=== PATIENT | male | born 1955 | race Caucasian/White ===

== ENCOUNTER → 2018-05-20 | Outpatient (CLI) | payer BC ==
[~2018-05-20] MED LIST: ALBU18HF2 INH; BUDE10.2 INH; CYAN10006 PO; CYAN100088 PO; FEXO1TAB40; FEXO1TAB40 PO; FURO40TA4 PO; IPRA3AMP31 NEB; LORA1TAB PO; METH500T5 PO; MIRA50TA PO; OXYC-465 PO; POTA10CA43 PO; TAMS0.4C2 PO; [UNRECOGNIZED DRUG - OTHER] PO
[2018-05-20 16:27] LABS: ABG BASE EXCESS 8.5 MMOL/L (-2.5-2.5); ABG OXYGEN SATURATION 94 % (94-100); ABG PCO2 53 MMHG (35-45); ABG PH 7.41 (7.37-7.43); ABG PO2 65 MMHG (79-93); ABG TCO2 35.1 MMOL/L (21.0-31.0)
[2018-05-20 16:28] LABS: ALLENS TEST POSITIVE; PATIENT TEMP 97.3; VENTILATOR NO
== END ==
LOC: RT 15:38
PROVIDERS: ATTEND Nurse Practitioner Family
DX: J90 Pleural effusion, not elsewhere classified (principal)
CPT/HCPCS: 36600; 82805; 94761

== ENCOUNTER 2018-05-22 13:14 | Observation (INO) | payer BC ==
[~2018-05-22] VITALS: Ht 188 cm; Wt 87.5 kg
--- NOTE | 2018-05-22 14:16 | ED Respiratory ---
General Chief Complaint: Respiratory Problems Stated Complaint: FLUID ON LUNGS Nursing Triage Note: TO TRIAGE IN . STATES HE HAD A CT IN [place] ON SUNDAY WHICH SHOWED FLUID AROUND HIS LUNG. WAS TOLD BY DR STEVEN TO COME HERE. PT COMPLAINS OF INCREASED SOA. RECENTLY STARTED ON LASIX WHICH HAS NOT HELPED. Source: patient, family Exam Limitations: no limitations History of Present Illness Date Seen by Provider: May 22, 2018 Time Seen by Provider: 14:01 Initial Comments Here with report of shortness of breath that is worse with any activity. Does have history of fluid on the long on the left. Also has history of pericarditis and pericardial effusion with pericardial window many years ago. Reports that the breathing is getting worse. He is seen by Dr. Steven earlier and started on Lasix and potassium and a effort to avoid thoracentesis. He is back today with shortness of breath with any activity. Also becoming short of breath with eating and has early satiety related to that. Timing/Duration: week, getting worse Severity: moderate Prior Episodes/Possible Cause: occasional episodes Modifying Factors: Worse With Activity; Improves With Albuterol Nebulizer; Worse With Lying Down; Improves With Oxygen, Improves With Rest Associated Symptoms: No cough, No fever/chills, No nasal congestion, No shortness of breath, No sore throat Allergies and Home Medications Allergies Uncoded Allergies: ROCEPH (Allergy, Severe, 05/22/18) Pt states, "I about ." CYCLOSPORIN (Allergy, Unknown, 05/22/18) Patient Home Medication List Home Medication List Reviewed: Yes Review of Systems Review of Systems Constitutional: see HPI, chills; No fever EENTM: no symptoms reported Respiratory: see HPI, dyspnea on exertion, orthopnea, short of breath, wheezing Cardiovascular: No chest pain; edema Gastrointestinal: No abdominal pain; loss of appetite; No nausea, No vomiting Genitourinary: no symptoms reported Musculoskeletal: no symptoms reported Skin: no symptoms reported Psychiatric/Neurological: No Symptoms Reported All Other Systems Reviewed Negative Unless Noted: Yes Past Aqwmave-Ojfysf-Hjoznz Hx Past Med/Social Hx: Reviewed Nursing Past Med/Soc Hx Patient Social History Alcohol Use: Denies Use Recreational Drug Use: Yes Drug of Choice: marijuana Smoking Status: Former Smoker Type Used: Cigars 2nd Hand Smoke Exposure: No Recent Foreign Travel: No Contact w/Someone Who Travel: No Recent Infectious Disease Expo: No Recent Hopitalizations: No Seasonal Allergies Seasonal Allergies: Yes Past Medical History Surgeries: Yes (mini gastric bypass) Appendectomy, Cardiac Respiratory: Yes Cardiac: No Neurological: No Genitourinary: No Musculoskeletal: No Endocrine: No HEENT: No Cancer: Yes Lymphoma Did You Recieve Any Treatments: Yes What Type of Treatment Did You: Chemotherapy, Radiation Psychosocial: No Blood Disorders: No Adverse Reaction/Blood Tranf: No Family Medical History Reviewed Nursing Family Hx Physical Exam Vital Signs - First Documented 05/22/18 13:18 Temp 97.8 Pulse 81 Resp 16 B/P (MAP) 193/79 (117) Pulse Ox 95 O2 Delivery Room Air Capillary Refill : Less Than 3 Seconds Height: 6'2.00" Weight: 193lbs. oz. 87.952860pb; BMI Method:Stated General Appearance: WD/WN, no apparent distress HEENT: PERRL/EOMI, pharynx normal Neck: full range of motion, supple Respiratory: no accessory muscle use, decreased breath sounds (left side absent ); No wheezing Cardiovascular: regular rate, rhythm, no murmur Gastrointestinal: non tender, soft Extremities: non-tender, normal inspection Neurologic/Psychiatric: alert, oriented x 3 Skin: normal color, warm/dry Progress/Results/Core Measures Suspected Sepsis Recent Fever Within 48 Hours: No Infection Criteria Present: None New/Unexplained Altered Menta: No Sepsis Screen: No Definite Risk SIRS Temperature:97.8 Pulse: 18 Respiratory Rate: 16 Laboratory Tests 05/22/18 14:15: White Blood Count 8.6 Blood Pressure 193 /79 Mean: 117 Laboratory Tests 05/22/18 14:15: Creatinine 0.70, INR Comment 1.0, Platelet Count 314, Total Bilirubin 0.5 Results/Orders Lab Results Laboratory Tests Test 05/22/18 14:15 Range/Units White Blood Count 8.6 4.3-11.0 10^3/uL Red Blood Count 4.72 4.35-5.85 10^6/uL Hemoglobin 15.0 13.3-17.7 G/DL Hematocrit 45 40-54 % Mean Corpuscular Volume 96 80-99 FL Mean Corpuscular Hemoglobin 32 25-34 PG Mean Corpuscular Hemoglobin Concent 33 32-36 G/DL Red Cell Distribution Width 13.2 10.0-14.5 % Platelet Count 314 130-400 10^3/uL Mean Platelet Volume 9.6 7.4-10.4 FL Neutrophils (%) (Auto) 76 H 42-75 % Lymphocytes (%) (Auto) 13 12-44 % Monocytes (%) (Auto) 9 0-12 % Eosinophils (%) (Auto) 1 0-10 % Basophils (%) (Auto) 0 0-10 % Neutrophils # (Auto) 6.6 1.8-7.8 X 10^3 Lymphocytes # (Auto) 1.2 1.0-4.0 X 10^3 Monocytes # (Auto) 0.8 0.0-1.0 X 10^3 Eosinophils # (Auto) 0.1 0.0-0.3 10^3/uL Basophils # (Auto) 0.0 0.0-0.1 10^3/uL Prothrombin Time 13.1 12.2-14.7 SEC INR Comment 1.0 0.8-1.4 Activated Partial Thromboplast Time 37 H 24-35 SEC Sodium Level 138 135-145 MMOL/L Potassium Level 4.4 3.6-5.0 MMOL/L Chloride Level 97 L 98-107 MMOL/L Carbon Dioxide Level 35 H 21-32 MMOL/L Anion Gap 6 5-14 MMOL/L Blood Urea Nitrogen 14 7-18 MG/DL Creatinine 0.70 0.60-1.30 MG/DL Estimat Glomerular Filtration Rate > 60 BUN/Creatinine Ratio 20 Glucose Level 112 H 70-105 MG/DL Calcium Level 11.0 H 8.5-10.1 MG/DL Corrected Calcium 8.5-10.1 MG/DL Total Bilirubin 0.5 0.1-1.0 MG/DL Aspartate Amino Transf (AST/SGOT) 26 5-34 U/L Alanine Aminotransferase (ALT/SGPT) 24 0-55 U/L Alkaline Phosphatase 92 40-136 U/L C-Reactive Protein High Sensitivity 1.28 H 0.00-0.50 MG/DL B-Type Natriuretic Peptide 74.2 <100.0 PG/ML Total Protein 8.4 H 6.4-8.2 GM/DL Albumin 4.6 H 3.2-4.5 GM/DL My Orders Orders - JENNIFER HEIN MD Saline Lock/Iv-Start (05/22/18 14:09) O2 (05/22/18 14:09) Cbc With Automated Diff (05/22/18 14:09) Comprehensive Metabolic Panel (05/22/18 14:09) Hs C Reactive Protein (05/22/18 14:09) Protime With Inr (05/22/18 14:09) Partial Thromboplastin Time (05/22/18 14:09) Chest Pa/Lat (2 View) (05/22/18 14:09) BNP (05/22/18 14:34) Vital Signs/I&O 05/22/18 05/22/18 13:18 13:55 Temp 97.8 Pulse 81 Resp 16 B/P (MAP) 193/79 (117) Pulse Ox 95 95 O2 Delivery Room Air Room Air Capillary Refill : Less Than 3 Seconds Blood Pressure Mean: 117 Progress Note : Progress Note Seen and evaluated. IV, labs and two-view chest x-ray ordered. Patient placed on O2 at 2 L for comfort as he is having difficulty and laying or sitting up in the cart due to shortness of breath. 1550: I did discuss the case with Dr. Desai and Dr. Steven. They accept patient for admission and for consultation respectively. Patient to have thoracentesis in the a.m. Findings concerns discussed with patient and family who agree with plan. Admit, observation status. Diagnostic Imaging Diagonstic Imaging: Xray Plain Films/CT/US/NM/MRI: chest Comments [facility] [place] NAME: ROLAND JACKSON [facility] REC#: [id number] PT STATUS: REG ER : 1955 PHYSICIAN: JENNIFER HEIN MD ADMIT DATE: 05/22/18/ER Draft Date of Exam:05/22/18 CHEST PA/LAT (2 VIEW) PATIENT HISTORY: Shortness of air, fluid about the lung. TECHNIQUE: Two views of the chest. COMPARISON: None. FINDINGS: There is a lrbgsfje-yi-suziy left pleural effusion, with associated airspace opacities. The right lung is clear. The cardiac silhouette is obscured but appears within normal limits of size. Sternotomy wire appears normal. There is aortic atherosclerosis. No acute osseous abnormality seen. There is no pneumothorax. IMPRESSION: Dfcsbele-rj-ubtib left pleural effusion with associated airspace opacities. Dictated on workstation # [id number] Dict: 05/22/18 1431 Trans: 05/22/18 1435 [facility] [id number] Interpreted by: SARAH BRANTLEY MD Electronically signed by: Reviewed: Reviewed by Me Departure Communication (Admissions) Time/Spoke to Admitting Phy: 15:15 Time/Spoke to Consulting Phy: 14:31 Impression Primary Impression: Pleural effusion, left Disposition: ADMITTED INPATIENT Condition: Stable Admissions Decision to Admit Reason: Admit from ER (General) Decision to Admit/Date: May 22, 2018 Time/Decision to Admit Time: 14:31 Departure-Patient Inst. Referrals: NO,LOCAL PHYSICIAN (PCP) Primary Care Physician MARV HERMAN APRN (Family) Primary Care Physician JENNIFER HEIN MD May 22, 2018 14:15
[2018-05-22 14:25] LABS: BASOPHILS % (AUTO) 0 % (0-10); EOSINOPHILS # (AUTO) 0.1 10^3/uL (0.0-0.3); EOSINOPHILS % (AUTO) 1 % (0-10); HEMATOCRIT 45 % (40-54); LYMPHOCYTES # (AUTO) 1.2 X 10^3 (1.0-4.0); LYMPHOCYTES % (AUTO) 13 % (12-44); MEAN CORPUSCULAR HEMOGLOBIN 32 PG (25-34); MEAN CORPUSCULAR HGB CONC 33 G/DL (32-36); MEAN CORPUSCULAR VOLUME 96 FL (80-99); MEAN PLATELET VOLUME 9.6 FL (7.4-10.4); MONOCYTES # (AUTO) 0.8 X 10^3 (0.0-1.0); MONOCYTES % (AUTO) 9 % (0-12); NEUTROPHILS # (AUTO) 6.6 X 10^3 (1.8-7.8); NEUTROPHILS % (AUTO) 76 % (42-75); PLATELET COUNT 314 10^3/uL (130-400); RED BLOOD COUNT 4.72 10^6/uL (4.35-5.85); RED CELL DISTRIBUTION WIDTH 13.2 % (10.0-14.5); WHITE BLOOD COUNT 8.6 10^3/uL (4.3-11.0)
--- OUTSIDE RECORDS SUMMARY | 2018-05-22 14:31 | XMS REPORT | Clinical Summary ---
Author Author Admin, E Organization [facility] Address Unknown Phone Allergies, Adverse Reactions, Alerts Allergy Name Reaction Description Start Date Severity Status Provider ALPA Critical Active Jessi Fields RN Conditions or Problems Problem Name Problem Code Onset Date Status Entry Date Provider Comment Standard Description Annotate SINUSITIS, ACUTE 461.9 Active Anurag HENDRICKS Acute sinusitis, unspecified HYPERTENSION 401.9 Active Jessi Fields RN Unspecified essential hypertension VERRUCA VULGARIS 078.10 Active Anurag HENDRICKS Viral warts, unspecified DIABETES, TYPE 2 250.00 Active Anurag HENDRICKS Diabetes mellitus without mention of complication, type II or unspecified type, not stated as uncontrolled ACUTE BRONCHITIS 466.0 Active Anurag HENDRICKS Acute bronchitis ALLERGIC RHINITIS 477.9 Active Anurag HENDRICKS Allergic rhinitis, cause unspecified SEBACEOUS CYST, NECK 706.2 Active Anurag HENDRICKS Sebaceous cyst CHOLELITHIASIS NOS 574.20 Active Edmar Callahan MD Calculus of gallbladder without mention of cholecystitis, without mention of obstruction SPECIAL SCREENING MALIGNANT NEOPLASM OF PROSTATE V76.44 Active Jessica HENDRICKS Screening for malignant neoplasms of prostate SCREENING FOR ISCHEMIC HEART DISEASE V81.0 Active Jessica HENDRICKS Screening for ischemic heart disease ERECTILE DYSFUNCTION, NON-ORGANIC 302.72 Active Anurag HENDRICKS Psychosexual dysfunction with inhibited sexual excitement Medication List Medication Instructions Start Date Stop Date Generic Name NDC Status Provider Patient Instruction SPIRONOLACTONE 25 MG TAB 1 tablet by mouth daily SPIRONOLACTONE 17754899251 Active Oliva Booth RN Active CIALIS 5 MG TABS Take 1 tablet by mouth daily TADALAFIL 34247072233 Active Anurag HENDRICKS Active METFORMIN HCL 1000 MG TABS 1 tablet by mouth twice daily METFORMIN HCL 94813160622 Active Imtiaz HENDRICKS Active LOVASTATIN 20 MG TABS take one tab po daily LOVASTATIN 50918450843 Active Macario Roy DO Active VESICARE 10 MG TABS take one tab po daily SOLIFENACIN SUCCINATE 12888886288 Active Macario Roy DO Active LEVOFLOXACIN 750 MG TABS Take 1 tablet by mouth daily LEVOFLOXACIN 04022056833 No Longer Active Devi Tomas Active LASIX 40 MG TAB 1/2 to 1 tablet by mouth daily as needed FUROSEMIDE 39184440097 Active Kathi [place] Active LOTREL 5-20 MG CAPS 1 PO BID AMLODIPINE BESY-BENAZEPRIL HCL 00158689836 Active Imtiaz HENDRICKS Active KRNTJLNI-MQOCSAEPO-IG 3.5-36994-7 OTIC SUSP 2 drops qid GBPLEQTN-HLLIGGZCB-ZW 02404215348 No Longer Active Anurag HENDRICKS Active LEVOFLOXACIN 750 MG TABS Take 1 tablet by mouth daily LEVOFLOXACIN 00679697568 No Longer Active Anurag HENDRICKS Active AZITHROMYCIN 250 MG TABS 2 po day 1 and 1 po days 2-5 AZITHROMYCIN 97576236003 No Longer Active Jessi Fields RN Active KARELY-D ALLERGY & CONGESTION 60-120 MG [id number] Take 1 tablet by mouth daily FEXOFENADINE-PSEUDOEPHEDRINE 87424835000 Active Macario Roy DO Active VENTOLIN HFA 108 (90 BASE) MCG/ACT AERS 2 puffs q 4-6 hrs as needed ALBUTEROL SULFATE 18119506894 Active Anurag HENDRICKS Active PREVACID 30 MG CPDR one p.o. daily LANSOPRAZOLE 49225250984 Active Macario Roy DO Active LANSOPRAZOLE 30 MG CPDR Take 1 tablet by mouth daily LANSOPRAZOLE 68288544122 No Longer Active Anurag HENDRICKS Active SMZ-TMP DS 800-160 MG TABS Take one (1) tablet by mouth twice a day SULFAMETHOXAZOLE-TRIMETHOPRIM 14179767378 No Longer Active Anurag HENDRICKS Active FLUTICASONE PROPIONATE 50 MCG/ACT SUSP 2 sprays each nostril qd FLUTICASONE PROPIONATE 60352003613 Active Kathi [place] Active AMOXICILLIN-POT CLAVULANATE 875-125 MG TABS Take one (1) tablet by mouth twice a day AMOXICILLIN-POT CLAVULANATE 19097902682 No Longer Active Jessi Fields RN Active ENDOCET 10-325 MG TABS Take one (1) tablet by mouth three times a day OXYCODONE-ACETAMINOPHEN 51247152156 Active Imtiaz HENDRICKS Active OXYCODONE-ACETAMINOPHEN 10-325 MG TABS Take once every 8 hours by mouth. 2010 OXYCODONE-ACETAMINOPHEN 13704419422 No Longer Active Anurag HENDRICKS Active AMOXICILLIN-POT CLAVULANATE 875-125 MG TABS Take one (1) tablet by mouth twice a day AMOXICILLIN-POT CLAVULANATE 875-125 MG TABS 457967 AMOXICILLIN-POT CLAVULANATE Inactive SMZ-TMP DS 800-160 MG TABS Take one (1) tablet by mouth twice a day SMZ-TMP DS 800-160 MG TABS SULFAMETHOXAZOLE-TRIMETHOPRIM Inactive LANSOPRAZOLE 30 MG CPDR Take 1 tablet by mouth daily LANSOPRAZOLE 30 MG CPDR 968419 LANSOPRAZOLE Inactive AZITHROMYCIN 250 MG TABS 2 po day 1 and 1 po days 2-5 AZITHROMYCIN 250 MG TABS 9998249 AZITHROMYCIN Inactive LEVOFLOXACIN 750 MG TABS Take 1 tablet by mouth daily LEVOFLOXACIN 750 MG TABS 599705 LEVOFLOXACIN Inactive VOCZWEXR-EISJEPMCZ-HG 3.5-82012-6 OTIC SUSP 2 drops qid KRVDPKMB-QIRAXPEZB-PG 3.5-39683-3 OTIC SUSP 626206 ZFRBVMIV-PPRNJOJVF-UD Inactive LEVOFLOXACIN 750 MG TABS Take 1 tablet by mouth daily LEVOFLOXACIN 750 MG TABS 644245 LEVOFLOXACIN Inactive OXYCODONE-ACETAMINOPHEN 10-325 MG TABS Take once every 8 hours by mouth. 2010 OXYCODONE-ACETAMINOPHEN 10-325 MG TABS 0856663 OXYCODONE- ACETAMINOPHEN Inactive Vital Signs Date Name Value Unit Range Description blood pressure, diastolic 96 mm[Hg] BP quigley blood pressure, systolic 175 mm[Hg] BP sys height E&M 73 [in_us] Bdy height pulse rate E&M 116 /min Heart rate temperature E&M 96.9 [degF] Body temperature weight E&M 392 [lb_av] Weight Measured blood pressure, diastolic 90 mm[Hg] BP quigley blood pressure, systolic 150 mm[Hg] BP sys blood pressure, diastolic 109 mm[Hg] BP quigley blood pressure, systolic 167 mm[Hg] BP sys height E&M 73 [in_us] Bdy height pulse rate E&M 110 /min Heart rate temperature E&M 97.6 [degF] Body temperature weight E&M 396 [lb_av] Weight Measured Encounters Code Encounter Date Provider Facility CPT-78463 Level 3 Est. Patient 12:08:55 CDT Imtiaz Jennings [facility] CPT-03822 Level 3 Est. Patient 15:00:13 CDT Anurag HENDRICKS [facility] CPT-86708 Level 3 New Patient 11:44:50 CDT Jessica Hazel [facility] CPT-68605 Level 3 Est. Patient 14:44:47 TELEGRAPHIC TYPEWRITER OPERATOR Anurag Roberson R[place]IE [facility] CPT-38880 Level 3 Est. Patient 10:14:18 CDT Anurag Roberson [facility] CPT-61386 Level 3 Est. Patient 11:02:44 CDT Anurag Roberson [facility] CPT-29844 Level 3 Est. Patient 11:00:59 CDT Anurag Roberson [facility] CPT-33255 Level 3 Est. Patient 16:06:00 TELEGRAPHIC TYPEWRITER OPERATOR Anurag Roberson [facility] CPT-34726 Level 3 Est. Patient 13:39:42 TELEGRAPHIC TYPEWRITER OPERATOR Anurag Karol [facility] Procedures Code Procedure Name Date Entry Date Standard Description CPT-20438 Venipuncture Draw Fee 11:44:50 CDT CPT-OV Office Visit 12:07:47 CDT CPT-28562 Abx/Therapy Injection 10:14:18 CDT CPT-J3301 Kenalog 40 mg (Triamcinolone Acetonide) 10:14:18 CDT CPT-J1100 Decadron 4mg (Dexamethasone) 10:14:18 CDT CPT-85379 Venipuncture Draw Fee 11:02:44 CDT CPT-J0696 Rocephin 1000 mg (Ceftriaxone) 11:00:59 CDT CPT-33948 Abx/Therapy Injection 11:00:59 CDT CPT-Cryo Cryotherapy 16:06:00 TELEGRAPHIC TYPEWRITER OPERATOR CPT-58737 Abx/Therapy Injection 13:39:42 TELEGRAPHIC TYPEWRITER OPERATOR CPT-J3301 Kenalog 40 mg (Triamcinolone Acetonide) 13:39:42 TELEGRAPHIC TYPEWRITER OPERATOR CPT-J1100 Decadron 4mg (Dexamethasone) 13:39:42 TELEGRAPHIC TYPEWRITER OPERATOR
--- OUTSIDE RECORDS SUMMARY | 2018-05-22 14:31 | XMS REPORT | Clinical Summary ---
Author Author Admin, E Organization [facility] Address Unknown Phone Allergies, Adverse Reactions, [...] TAB 1 tablet by mouth daily SPIRONOLACTONE 80603617260 Active lOiva Booth RN Active CIALIS 5 MG TABS Take 1 tablet by mouth daily TADALAFIL 22596513187 Active Anurag HENDRICKS Active METFORMIN HCL 1000 MG TABS 1 tablet by mouth twice daily METFORMIN HCL 86041575365 Active Imtiaz HENDRICKS Active LOVASTATIN 20 MG TABS take one tab po daily LOVASTATIN 64289009016 Active Macario Roy DO Active VESICARE 10 MG TABS take one tab po daily SOLIFENACIN SUCCINATE 39120393203 Active Macario Roy DO Active LEVOFLOXACIN 750 MG TABS Take 1 tablet by mouth daily LEVOFLOXACIN 04360157654 No Longer Active Devi Tomas Active LASIX 40 MG TAB 1/2 to 1 tablet by mouth daily as needed FUROSEMIDE 66574948572 Active Kathi [place] Active LOTREL 5-20 MG CAPS 1 PO BID AMLODIPINE BESY-BENAZEPRIL HCL 77134254870 Active Imtiaz HENDRICKS Active SUEFYQPJ-YSRVWOITS-KZ 3.5-49477-2 OTIC SUSP 2 drops qid ZXUVNZCN-BJBHKHPPE-YK 15927002884 No Longer Active Anurag HENDRICKS Active LEVOFLOXACIN 750 MG TABS Take 1 tablet by mouth daily LEVOFLOXACIN 38193206374 No Longer Active Anurag HENDRICKS Active AZITHROMYCIN 250 MG TABS 2 po day 1 and 1 po days 2-5 AZITHROMYCIN 11272614824 No Longer Active Jessi Fields RN Active KARELY-D ALLERGY & CONGESTION 60-120 MG JP46T-BAD Take 1 tablet by mouth daily FEXOFENADINE-PSEUDOEPHEDRINE 11708633254 Active Macario Roy DO Active VENTOLIN HFA 108 (90 BASE) MCG/ACT AERS 2 puffs q 4-6 hrs as needed ALBUTEROL SULFATE 12368532913 Active Anurag HENDRICKS Active PREVACID 30 MG CPDR one p.o. daily LANSOPRAZOLE 42664394843 Active Macario Roy DO Active LANSOPRAZOLE 30 MG CPDR Take 1 tablet by mouth daily LANSOPRAZOLE 34567786030 No Longer Active Anurag HENDRICKS Active SMZ-TMP DS 800-160 MG TABS Take one (1) tablet by mouth twice a day SULFAMETHOXAZOLE-TRIMETHOPRIM 71042416379 No Longer Active Anurag HENDRICKS Active FLUTICASONE PROPIONATE 50 MCG/ACT SUSP 2 sprays each nostril qd FLUTICASONE PROPIONATE 98705995481 Active Kathi [place] Active AMOXICILLIN-POT CLAVULANATE 875-125 MG TABS Take one (1) tablet by mouth twice a day AMOXICILLIN-POT CLAVULANATE 21265277117 No Longer Active Jessi Fields RN Active ENDOCET 10-325 MG TABS Take one (1) tablet by mouth three times a day OXYCODONE-ACETAMINOPHEN 63019330263 Active Imtiaz HENDRICKS Active OXYCODONE-ACETAMINOPHEN 10-325 MG TABS Take once every 8 hours by mouth. 2010 OXYCODONE-ACETAMINOPHEN 92451692089 No Longer Active Anurag HENDRICKS Active AMOXICILLIN-POT CLAVULANATE 875-125 MG TABS Take one (1) tablet by mouth twice a day AMOXICILLIN-POT CLAVULANATE 875-125 MG TABS 195604 AMOXICILLIN-POT CLAVULANATE Inactive SMZ-TMP DS 800-160 MG TABS Take one (1) tablet by mouth twice a day SMZ-TMP DS 800-160 MG TABS SULFAMETHOXAZOLE-TRIMETHOPRIM Inactive LANSOPRAZOLE 30 MG CPDR Take 1 tablet by mouth daily LANSOPRAZOLE 30 MG CPDR 566080 LANSOPRAZOLE Inactive AZITHROMYCIN 250 MG TABS 2 po day 1 and 1 po days 2-5 AZITHROMYCIN 250 MG TABS 5982632 AZITHROMYCIN Inactive LEVOFLOXACIN 750 MG TABS Take 1 tablet by mouth daily LEVOFLOXACIN 750 MG TABS 800394 LEVOFLOXACIN Inactive HIDMORNZ-XGMPIEIMX-PA 3.5-69583-5 OTIC SUSP 2 drops qid TGNCLRBR-JWIVDOILP-KL 3.5-49806-5 OTIC SUSP 441667 UOEKQMFR-LCMAWIQLO-EJ Inactive LEVOFLOXACIN 750 MG TABS Take 1 tablet by mouth daily LEVOFLOXACIN 750 MG TABS 155487 LEVOFLOXACIN Inactive OXYCODONE-ACETAMINOPHEN 10-325 MG TABS Take once every 8 hours by mouth. 2010 OXYCODONE-ACETAMINOPHEN 10-325 MG TABS 5663475 OXYCODONE- ACETAMINOPHEN Inactive Vital Signs Date Name [...] sys blood pressure, diastolic 109 mm[Hg] BP uqigley blood pressure, systolic 167 mm[Hg] BP sys height E&M 73 [in_us] Bdy height pulse rate E&M 110 /min Heart rate temperature E&M 97.6 [degF] Body temperature weight E&M 396 [lb_av] Weight Measured Encounters Code Encounter Date Provider Facility CPT-62451 Level 3 Est. Patient 12:08:55 CDT Imtiaz Jennings [facility] CPT-58539 Level 3 Est. Patient 15:00:13 CDT Anurag Roberson [facility] CPT-01683 Level 3 New Patient 11:44:50 CDT Jessica Hazel [facility] CPT-06982 Level 3 Est. Patient 14:44:47 BOMB TECHNICIAN Anurag Roberson RUTHIE [facility] CPT-91350 Level 3 Est. Patient 10:14:18 CDT Anurag Roberson [facility] CPT-79012 Level 3 Est. Patient 11:02:44 CDT Anurag Roberson [facility] CPT-50664 Level 3 Est. Patient 11:00:59 CDT Anurag Roberson [facility] CPT-94741 Level 3 Est. Patient 16:06:00 BOMB TECHNICIAN Anurag Roberson [facility] CPT-44744 Level 3 Est. Patient 13:39:42 BOMB TECHNICIAN Anurag Karol [facility] Procedures Code Procedure Name Date Entry Date Standard Description CPT-61543 Venipuncture Draw Fee 11:44:50 CDT CPT-OV Office Visit 12:07:47 CDT CPT-11163 Abx/Therapy Injection 10:14:18 CDT CPT-J3301 Kenalog 40 mg (Triamcinolone Acetonide) 10:14:18 CDT CPT-J1100 Decadron 4mg (Dexamethasone) 10:14:18 CDT CPT-93292 Venipuncture Draw Fee 11:02:44 CDT CPT-J0696 Rocephin 1000 mg (Ceftriaxone) 11:00:59 CDT CPT-08304 Abx/Therapy Injection 11:00:59 CDT CPT-Cryo Cryotherapy 16:06:00 BOMB TECHNICIAN CPT-74306 Abx/Therapy Injection 13:39:42 BOMB TECHNICIAN CPT-J3301 Kenalog 40 mg (Triamcinolone Acetonide) 13:39:42 BOMB TECHNICIAN CPT-J1100 Decadron 4mg (Dexamethasone) 13:39:42 BOMB TECHNICIAN
--- OUTSIDE RECORDS SUMMARY | 2018-05-22 14:31 | XMS REPORT | Clinical Summary ---
Author Author Admin, E Organization [facility] Address Unknown Phone Allergies, Adverse Reactions, Alerts [...] TAB 1 tablet by mouth daily SPIRONOLACTONE 55859600215 Active Oliva Booth RN Active CIALIS 5 MG TABS Take 1 tablet by mouth daily TADALAFIL 67686130475 Active Anurag HENDRICKS Active METFORMIN HCL 1000 MG TABS 1 tablet by mouth twice daily METFORMIN HCL 84150265883 Active Imtiaz HENDRICKS Active LOVASTATIN 20 MG TABS take one tab po daily LOVASTATIN 95404298118 Active Macario Roy DO Active VESICARE 10 MG TABS take one tab po daily SOLIFENACIN SUCCINATE 90621179642 Active Macario Roy DO Active LEVOFLOXACIN 750 MG TABS Take 1 tablet by mouth daily LEVOFLOXACIN 71247174156 No Longer Active Devi Tomas Active LASIX 40 MG TAB 1/2 to 1 tablet by mouth daily as needed FUROSEMIDE 07725467130 Active Kathi [place] Active LOTREL 5-20 MG CAPS 1 PO BID AMLODIPINE BESY-BENAZEPRIL HCL 82558894957 Active Imtiaz HENDRICKS Active AMILUGJC-FLPHHQLHY-GJ 3.5-08515-4 OTIC SUSP 2 drops qid MUEUIUFH-UPRNGFIYP-ZP 82619505678 No Longer Active Anurag HENDRICKS Active LEVOFLOXACIN 750 MG TABS Take 1 tablet by mouth daily LEVOFLOXACIN 09972645105 No Longer Active Anurag HENDRICKS Active AZITHROMYCIN 250 MG TABS 2 po day 1 and 1 po days 2-5 AZITHROMYCIN 97031466752 No Longer Active Jessi Fields RN Active KARELY-D ALLERGY & CONGESTION 60-120 MG KH85N-HFJ Take 1 tablet by mouth daily FEXOFENADINE-PSEUDOEPHEDRINE 19953629143 Active Macario Roy DO Active VENTOLIN HFA 108 (90 BASE) MCG/ACT AERS 2 puffs q 4-6 hrs as needed ALBUTEROL SULFATE 24402274584 Active Anurag HENDRICKS Active PREVACID 30 MG CPDR one p.o. daily LANSOPRAZOLE 43142700737 Active Macario Roy DO Active LANSOPRAZOLE 30 MG CPDR Take 1 tablet by mouth daily LANSOPRAZOLE 93750192169 No Longer Active Anurag HENDRICKS Active SMZ-TMP DS 800-160 MG TABS Take one (1) tablet by mouth twice a day SULFAMETHOXAZOLE-TRIMETHOPRIM 39866831250 No Longer Active Anurag HENDRICKS Active FLUTICASONE PROPIONATE 50 MCG/ACT SUSP 2 sprays each nostril qd FLUTICASONE PROPIONATE 64769133870 Active Kathi [place] Active AMOXICILLIN-POT CLAVULANATE 875-125 MG TABS Take one (1) tablet by mouth twice a day AMOXICILLIN-POT CLAVULANATE 08261500645 No Longer Active Jessi Fields RN Active ENDOCET 10-325 MG TABS Take one (1) tablet by mouth three times a day OXYCODONE-ACETAMINOPHEN 66072281032 Active Imtiaz HENDRICKS Active OXYCODONE-ACETAMINOPHEN 10-325 MG TABS Take once every 8 hours by mouth. 2010 OXYCODONE-ACETAMINOPHEN 03639784425 No Longer Active Anurag HENDRICKS Active AMOXICILLIN-POT CLAVULANATE 875-125 MG TABS Take one (1) tablet by mouth twice a day AMOXICILLIN-POT CLAVULANATE 875-125 MG TABS 505278 AMOXICILLIN-POT CLAVULANATE Inactive SMZ-TMP DS 800-160 MG TABS Take one (1) tablet by mouth twice a day SMZ-TMP DS 800-160 MG TABS SULFAMETHOXAZOLE-TRIMETHOPRIM Inactive LANSOPRAZOLE 30 MG CPDR Take 1 tablet by mouth daily LANSOPRAZOLE 30 MG CPDR 815655 LANSOPRAZOLE Inactive AZITHROMYCIN 250 MG TABS 2 po day 1 and 1 po days 2-5 AZITHROMYCIN 250 MG TABS 1286784 AZITHROMYCIN Inactive LEVOFLOXACIN 750 MG TABS Take 1 tablet by mouth daily LEVOFLOXACIN 750 MG TABS 099184 LEVOFLOXACIN Inactive CIBDQNUH-HDQJLFPPC-RV 3.5-37177-3 OTIC SUSP 2 drops qid HZOOYLXA-HXFIFOOOI-BE 3.5-43030-4 OTIC SUSP 609092 VILLVYJZ-MJLUVFQFB-WC Inactive LEVOFLOXACIN 750 MG TABS Take 1 tablet by mouth daily LEVOFLOXACIN 750 MG TABS 996376 LEVOFLOXACIN Inactive OXYCODONE-ACETAMINOPHEN 10-325 MG TABS Take once every 8 hours by mouth. 2010 OXYCODONE-ACETAMINOPHEN 10-325 MG TABS 7705073 OXYCODONE- ACETAMINOPHEN Inactive Vital Signs Date Name [...] Measured Encounters Code Encounter Date Provider Facility CPT-14813 Level 3 Est. Patient 12:08:55 CDT Imtiaz Jennings [facility] CPT-91342 Level 3 Est. Patient 15:00:13 CDT Anurag Roberson [facility] CPT-11109 Level 3 New Patient 11:44:50 CDT Jessica Hazel [facility] CPT-61591 Level 3 Est. 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 Patient 10:14:18 CDT Anurag Roberson [facility] CPT-00183 Level 3 Est. Patient 11:02:44 CDT Anurag Roberson [facility] CPT-21212 Level 3 Est. Patient 11:00:59 CDT Anurag Roberson [facility] CPT-89403 Level 3 Est. 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 Patient 13:39:42 CHEMISTRY TEACHER Anurag Karol [facility] Procedures Code Procedure Name Date Entry Date Standard Description CPT-67186 Venipuncture Draw Fee 11:44:50 CDT CPT-OV Office Visit 12:07:47 CDT CPT-21194 Abx/Therapy Injection 10:14:18 CDT CPT-J3301 Kenalog 40 mg (Triamcinolone Acetonide) 10:14:18 CDT CPT-J1100 Decadron 4mg (Dexamethasone) 10:14:18 CDT CPT-72518 Venipuncture Draw Fee 11:02:44 CDT CPT-J0696 Rocephin 1000 mg (Ceftriaxone) 11:00:59 CDT CPT-61660 Abx/Therapy Injection 11:00:59 CDT CPT-Cryo Cryotherapy 16:06:00 CHEMISTRY TEACHER CPT-58152 Abx/Therapy Injection 13:39:42 CHEMISTRY TEACHER CPT-J3301 Kenalog 40 mg (Triamcinolone Acetonide) 13:39:42 CHEMISTRY TEACHER CPT-J1100 Decadron 4mg (Dexamethasone) 13:39:42 CHEMISTRY TEACHER
--- OUTSIDE RECORDS SUMMARY | 2018-05-22 14:31 | XMS REPORT | Clinical Summary ---
Author Author Admin, E Organization [facility] Address Unknown Phone Allergies, Adverse Reactions, Alerts [...] as uncontrolled ACUTE BRONCHITIS 466.0 Active Anurag HENRDICKS Acute bronchitis ALLERGIC RHINITIS 477.9 Active Anurag [...] TAB 1 tablet by mouth daily SPIRONOLACTONE 28079047699 Active Oliva Leobardo KHAN Active CIALIS 5 MG TABS Take 1 tablet by mouth daily TADALAFIL 96042290782 Active Anurag HENDRICKS Active METFORMIN HCL 1000 MG TABS 1 tablet by mouth twice daily METFORMIN HCL 24562682605 Active Imtiaz HENDRICKS Active LOVASTATIN 20 MG TABS take one tab po daily LOVASTATIN 72194539569 Active Macario Roy DO Active VESICARE 10 MG TABS take one tab po daily SOLIFENACIN SUCCINATE 15677967424 Active Macario Roy DO Active LEVOFLOXACIN 750 MG TABS Take 1 tablet by mouth daily LEVOFLOXACIN 95556903136 No Longer Active Devi Tomas Active LASIX 40 MG TAB 1/2 to 1 tablet by mouth daily as needed FUROSEMIDE 04954536398 Active Kathi [place] Active LOTREL 5-20 MG CAPS 1 PO BID AMLODIPINE BESY-BENAZEPRIL HCL 47106117365 Active Imtiaz HENDRICKS Active QCASULDB-NNXOSWHZY-XC 3.5-72731-9 OTIC SUSP 2 drops qid EBDFIZFE-LZFXZMOMN-AE 89865054848 No Longer Active Anurag HENDRICKS Active LEVOFLOXACIN 750 MG TABS Take 1 tablet by mouth daily LEVOFLOXACIN 55301714186 No Longer Active Anurag HENDRICKS Active AZITHROMYCIN 250 MG TABS 2 po day 1 and 1 po days 2-5 AZITHROMYCIN 38447179255 No Longer Active Jessi Fields RN Active KARELY-D ALLERGY & CONGESTION 60-120 MG MI60E-MAE Take 1 tablet by mouth daily FEXOFENADINE-PSEUDOEPHEDRINE 91087549051 Active Jaycee Flores MD PhD Active VENTOLIN HFA 108 (90 BASE) MCG/ACT AERS 2 puffs q 4-6 hrs as needed ALBUTEROL SULFATE 00995177456 Active Anurag HENDRICKS Active PREVACID 30 MG CPDR one p.o. daily LANSOPRAZOLE 71756609643 Active Macario Roy DO Active LANSOPRAZOLE 30 MG CPDR Take 1 tablet by mouth daily LANSOPRAZOLE 80770614693 No Longer Active Anurag HENDRICKS Active SMZ-TMP DS 800-160 MG TABS Take one (1) tablet by mouth twice a day SULFAMETHOXAZOLE-TRIMETHOPRIM 97402248688 No Longer Active Anurag HENDRICKS Active FLUTICASONE PROPIONATE 50 MCG/ACT SUSP 2 sprays each nostril qd FLUTICASONE PROPIONATE 18198729656 Active Kathi [place] Active AMOXICILLIN-POT CLAVULANATE 875-125 MG TABS Take one (1) tablet by mouth twice a day AMOXICILLIN-POT CLAVULANATE 67499852881 No Longer Active Jessi Fields RN Active ENDOCET 10-325 MG TABS Take one (1) tablet by mouth three times a day OXYCODONE-ACETAMINOPHEN 96296104878 Active Imtiaz HENDRICKS Active OXYCODONE-ACETAMINOPHEN 10-325 MG TABS Take once every 8 hours by mouth. 2010 OXYCODONE-ACETAMINOPHEN 75402045958 No Longer Active Anurag HENDRICKS Active AMOXICILLIN-POT CLAVULANATE 875-125 MG TABS Take one (1) tablet by mouth twice a day AMOXICILLIN-POT CLAVULANATE 875-125 MG TABS 722205 AMOXICILLIN-POT CLAVULANATE Inactive SMZ-TMP DS 800-160 MG TABS Take one (1) tablet by mouth twice a day SMZ-TMP DS 800-160 MG TABS SULFAMETHOXAZOLE-TRIMETHOPRIM Inactive LANSOPRAZOLE 30 MG CPDR Take 1 tablet by mouth daily LANSOPRAZOLE 30 MG CPDR 698914 LANSOPRAZOLE Inactive AZITHROMYCIN 250 MG TABS 2 po day 1 and 1 po days 2-5 AZITHROMYCIN 250 MG TABS 6540891 AZITHROMYCIN Inactive LEVOFLOXACIN 750 MG TABS Take 1 tablet by mouth daily LEVOFLOXACIN 750 MG TABS 622361 LEVOFLOXACIN Inactive EBARNPVS-SZHELBGUF-SF 3.5-82038-3 OTIC SUSP 2 drops qid YTGYGOKY-ICEXZUUOW-JI 3.5-96992-0 OTIC SUSP 460437 HZVTCPNB-QUQWTAOJJ-IO Inactive LEVOFLOXACIN 750 MG TABS Take 1 tablet by mouth daily LEVOFLOXACIN 750 MG TABS 265204 LEVOFLOXACIN Inactive OXYCODONE-ACETAMINOPHEN 10-325 MG TABS Take once every 8 hours by mouth. 2010 OXYCODONE-ACETAMINOPHEN 10-325 MG TABS 5052471 OXYCODONE- ACETAMINOPHEN Inactive Vital Signs Date Name Value Unit Range Description blood pressure, diastolic - 8462-4 96 mm[Hg] BP quigley blood pressure, systolic - 8480-6 175 mm[Hg] BP sys height E&M - 8302-2 73 [in_us] Bdy height pulse rate E&M - 8867-4 116 /min Heart rate temperature E&M 96.9 [degF] Body temperature weight E&M - 3141-9 392 [lb_av] Weight Measured blood pressure, diastolic - 8462-4 90 mm[Hg] BP quigley blood pressure, systolic - 8480-6 150 mm[Hg] BP sys blood pressure, diastolic - 8462-4 109 mm[Hg] BP quigley blood pressure, systolic - 8480-6 167 mm[Hg] BP sys height E&M - 8302-2 73 [in_us] Bdy height pulse rate E&M - 8867-4 110 /min Heart rate temperature E&M 97.6 [degF] Body temperature weight E&M - 3141-9 396 [lb_av] Weight Measured Encounters Code Encounter Date Provider Facility CPT-76109 Level 3 Est. Patient 12:08:55 CDT Imtiaz Jennings [facility] CPT-24977 Level 3 Est. Patient 15:00:13 CDT Anurag Karol HENDRICKS [facility] CPT-35222 Level 3 New Patient 11:44:50 CDT Jessica Hazel [facility] CPT-81713 Level 3 Est. 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 Patient 10:14:18 CDT Anurag Roberson [facility] CPT-17108 Level 3 Est. Patient 11:02:44 CDT Anurag Roberson [facility] CPT-59956 Level 3 Est. Patient 11:00:59 CDT Anurag Alvarezner [facility] CPT-81387 Level 3 Est. Patient 16:06:00 SLAG EXPANDER Anurag Alvarezner [facility] CPT-01639 Level 3 Est. Patient 13:39:42 SLAG EXPANDER Anurag Alvarezner [facility] Procedures Code Procedure Name Date Entry Date Standard Description CPT-42164 Venipuncture Draw Fee 11:44:50 CDT CPT-OV Office Visit 12:07:47 CDT CPT-90506 Abx/Therapy Injection 10:14:18 CDT CPT-J3301 Kenalog 40 mg (Triamcinolone Acetonide) 10:14:18 CDT CPT-J1100 Decadron 4mg (Dexamethasone) 10:14:18 CDT CPT-58483 Venipuncture Draw Fee 11:02:44 CDT CPT-J0696 Rocephin 1000 mg (Ceftriaxone) 11:00:59 CDT CPT-54114 Abx/Therapy Injection 11:00:59 CDT CPT-Cryo Cryotherapy 16:06:00 SLAG EXPANDER CPT-57646 Abx/Therapy Injection 13:39:42 SLAG EXPANDER CPT-J3301 Kenalog 40 mg (Triamcinolone Acetonide) 13:39:42 SLAG EXPANDER CPT-J1100 Decadron 4mg (Dexamethasone) 13:39:42 SLAG EXPANDER
--- OUTSIDE RECORDS SUMMARY | 2018-05-22 14:32 | XMS REPORT | Clinical Summary ---
[...] TAB 1 tablet by mouth daily SPIRONOLACTONE 76315140941 Active Olvia Booth RN Active CIALIS 5 MG TABS Take 1 tablet by mouth daily TADALAFIL 60501916966 Active Anurag HENDRICKS Active METFORMIN HCL 1000 MG TABS 1 tablet by mouth twice daily METFORMIN HCL 32812656137 Active Imtiaz HENDRICKS Active LOVASTATIN 20 MG TABS take one tab po daily LOVASTATIN 05669407585 Active Macario Roy DO Active VESICARE 10 MG TABS take one tab po daily SOLIFENACIN SUCCINATE 60242358200 Active Macario Roy DO Active LEVOFLOXACIN 750 MG TABS Take 1 tablet by mouth daily LEVOFLOXACIN 87974661526 No Longer Active Devi Tomas Active LASIX 40 MG TAB 1/2 to 1 tablet by mouth daily as needed FUROSEMIDE 59323962932 Active Kathi [place] Active LOTREL 5-20 MG CAPS 1 PO BID AMLODIPINE BESY-BENAZEPRIL HCL 96802719437 Active Imtiaz HENDRICKS Active HFTWQGZL-ZXRTBVBUL-WQ 3.5-03569-6 OTIC SUSP 2 drops qid UOYDLKVL-EOMCBWPUP-HK 79842803371 No Longer Active Anurag HENDRICKS Active LEVOFLOXACIN 750 MG TABS Take 1 tablet by mouth daily LEVOFLOXACIN 58009114358 No Longer Active Anurag HENDRICKS Active AZITHROMYCIN 250 MG TABS 2 po day 1 and 1 po days 2-5 AZITHROMYCIN 69519669516 No Longer Active Jessi Fields RN Active KARELY-D ALLERGY & CONGESTION 60-120 MG ZR26S-REZ Take 1 tablet by mouth daily FEXOFENADINE-PSEUDOEPHEDRINE 77860881264 Active Macario Roy DO Active VENTOLIN HFA 108 (90 BASE) MCG/ACT AERS 2 puffs q 4-6 hrs as needed ALBUTEROL SULFATE 95386020468 Active Anurag HENDRICKS Active PREVACID 30 MG CPDR one p.o. daily LANSOPRAZOLE 98657622559 Active Macario Roy DO Active LANSOPRAZOLE 30 MG CPDR Take 1 tablet by mouth daily LANSOPRAZOLE 62702606091 No Longer Active Anurag HENDRICKS Active SMZ-TMP DS 800-160 MG TABS Take one (1) tablet by mouth twice a day SULFAMETHOXAZOLE-TRIMETHOPRIM 40198439791 No Longer Active Anurag HENDRICKS Active FLUTICASONE PROPIONATE 50 MCG/ACT SUSP 2 sprays each nostril qd FLUTICASONE PROPIONATE 62354744749 Active Kathi [place] Active AMOXICILLIN-POT CLAVULANATE 875-125 MG TABS Take one (1) tablet by mouth twice a day AMOXICILLIN-POT CLAVULANATE 81095107911 No Longer Active Jessi Fields RN Active ENDOCET 10-325 MG TABS Take one (1) tablet by mouth three times a day OXYCODONE-ACETAMINOPHEN 46479852574 Active Imtiaz HENDRICKS Active OXYCODONE-ACETAMINOPHEN 10-325 MG TABS Take once every 8 hours by mouth. 2010 OXYCODONE-ACETAMINOPHEN 98609973487 No Longer Active Anurag HENDRICKS Active AMOXICILLIN-POT CLAVULANATE 875-125 MG TABS Take one (1) tablet by mouth twice a day AMOXICILLIN-POT CLAVULANATE 875-125 MG TABS 431781 AMOXICILLIN-POT CLAVULANATE Inactive SMZ-TMP DS 800-160 MG TABS Take one (1) tablet by mouth twice a day SMZ-TMP DS 800-160 MG TABS SULFAMETHOXAZOLE-TRIMETHOPRIM Inactive LANSOPRAZOLE 30 MG CPDR Take 1 tablet by mouth daily LANSOPRAZOLE 30 MG CPDR 758728 LANSOPRAZOLE Inactive AZITHROMYCIN 250 MG TABS 2 po day 1 and 1 po days 2-5 AZITHROMYCIN 250 MG TABS 7994400 AZITHROMYCIN Inactive LEVOFLOXACIN 750 MG TABS Take 1 tablet by mouth daily LEVOFLOXACIN 750 MG TABS 751662 LEVOFLOXACIN Inactive OIIGPHFQ-SYGIBHJTD-KM 3.5-48828-9 OTIC SUSP 2 drops qid YURBRMBS-BULTZFGTW-VO 3.5-33532-0 OTIC SUSP 041182 EXVXANDC-YUNLZHRJP-GP Inactive LEVOFLOXACIN 750 MG TABS Take 1 tablet by mouth daily LEVOFLOXACIN 750 MG TABS 007969 LEVOFLOXACIN Inactive OXYCODONE-ACETAMINOPHEN 10-325 MG TABS Take once every 8 hours by mouth. 2010 OXYCODONE-ACETAMINOPHEN 10-325 MG TABS 0016742 OXYCODONE- ACETAMINOPHEN Inactive Vital Signs Date Name [...] Measured Encounters Code Encounter Date Provider Facility CPT-76713 Level 3 Est. Patient 12:08:55 CDT Imtiaz Jennings [facility] CPT-51832 Level 3 Est. Patient 15:00:13 CDT Anurag Roberson [facility] CPT-86239 Level 3 New Patient 11:44:50 CDT Jessica Hazel [facility] CPT-29528 Level 3 Est. 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 Patient 10:14:18 CDT Anurag Roberson [facility] CPT-35524 Level 3 Est. Patient 11:02:44 CDT Anurag Roberson [facility] CPT-97821 Level 3 Est. Patient 11:00:59 CDT Anurag Roberson [facility] CPT-39562 Level 3 Est. 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 Patient 13:39:42 SUPERVISOR ABATTOIR Anurag Karol [facility] Procedures Code Procedure Name Date Entry Date Standard Description CPT-05003 Venipuncture Draw Fee 11:44:50 CDT CPT-OV Office Visit 12:07:47 CDT CPT-02158 Abx/Therapy Injection 10:14:18 CDT CPT-J3301 Kenalog 40 mg (Triamcinolone Acetonide) 10:14:18 CDT CPT-J1100 Decadron 4mg (Dexamethasone) 10:14:18 CDT CPT-69470 Venipuncture Draw Fee 11:02:44 CDT CPT-J0696 Rocephin 1000 mg (Ceftriaxone) 11:00:59 CDT CPT-29756 Abx/Therapy Injection 11:00:59 CDT CPT-Cryo Cryotherapy 16:06:00 SUPERVISOR ABATTOIR CPT-36270 Abx/Therapy Injection 13:39:42 SUPERVISOR ABATTOIR CPT-J3301 Kenalog 40 mg (Triamcinolone Acetonide) 13:39:42 SUPERVISOR ABATTOIR CPT-J1100 Decadron 4mg (Dexamethasone) 13:39:42 SUPERVISOR ABATTOIR
--- OUTSIDE RECORDS SUMMARY | 2018-05-22 14:32 | XMS REPORT | Clinical Summary ---
Author Author Admin, E Organization [facility] Address Unknown Phone Allergies, Adverse Reactions, Alerts [...] TAB 1 tablet by mouth daily SPIRONOLACTONE 80351578870 Active Oliva Leobardo KHAN Active CIALIS 5 MG TABS Take 1 tablet by mouth daily TADALAFIL 26951765438 Active Anurag HENDRICKS Active METFORMIN HCL 1000 MG TABS 1 tablet by mouth twice daily METFORMIN HCL 98497672972 Active Imtiaz HENDRICKS Active LOVASTATIN 20 MG TABS take one tab po daily LOVASTATIN 04674677836 Active Macario Roy DO Active VESICARE 10 MG TABS take one tab po daily SOLIFENACIN SUCCINATE 16916763703 Active Macario Roy DO Active LEVOFLOXACIN 750 MG TABS Take 1 tablet by mouth daily LEVOFLOXACIN 93576275209 No Longer Active Devi Tomas Active LASIX 40 MG TAB 1/2 to 1 tablet by mouth daily as needed FUROSEMIDE 10366229676 Active Kathi [place] Active LOTREL 5-20 MG CAPS 1 PO BID AMLODIPINE BESY-BENAZEPRIL HCL 54626705906 Active Imtiaz HENDRICKS Active BSSOJUQG-NOSIJUDDE-JS 3.5-24519-4 OTIC SUSP 2 drops qid BQEEBZUQ-OAZOSBLOC-DA 70883193267 No Longer Active Anurag HENDRICKS Active LEVOFLOXACIN 750 MG TABS Take 1 tablet by mouth daily LEVOFLOXACIN 10155996242 No Longer Active Anurag HENDRICKS Active AZITHROMYCIN 250 MG TABS 2 po day 1 and 1 po days 2-5 AZITHROMYCIN 28105125274 No Longer Active Jessi Fields RN Active KARELY-D ALLERGY & CONGESTION 60-120 MG DZ99J-MHT Take 1 tablet by mouth daily FEXOFENADINE-PSEUDOEPHEDRINE 50485901640 Active Jaycee Flores MD PhD Active VENTOLIN HFA 108 (90 BASE) MCG/ACT AERS 2 puffs q 4-6 hrs as needed ALBUTEROL SULFATE 25174225457 Active Anurag HENDRICKS Active PREVACID 30 MG CPDR one p.o. daily LANSOPRAZOLE 96324841356 Active Macario Roy DO Active LANSOPRAZOLE 30 MG CPDR Take 1 tablet by mouth daily LANSOPRAZOLE 04655085643 No Longer Active Anurag HENDRICKS Active SMZ-TMP DS 800-160 MG TABS Take one (1) tablet by mouth twice a day SULFAMETHOXAZOLE-TRIMETHOPRIM 93751725576 No Longer Active Anurag HENDRICKS Active FLUTICASONE PROPIONATE 50 MCG/ACT SUSP 2 sprays each nostril qd FLUTICASONE PROPIONATE 81530270914 Active Kathi [place] Active AMOXICILLIN-POT CLAVULANATE 875-125 MG TABS Take one (1) tablet by mouth twice a day AMOXICILLIN-POT CLAVULANATE 91147897209 No Longer Active Jessi Fields RN Active ENDOCET 10-325 MG TABS Take one (1) tablet by mouth three times a day OXYCODONE-ACETAMINOPHEN 56842836565 Active Imtiaz HENDRICKS Active OXYCODONE-ACETAMINOPHEN 10-325 MG TABS Take once every 8 hours by mouth. 2010 OXYCODONE-ACETAMINOPHEN 63238181893 No Longer Active Anurag HENDRICKS Active AMOXICILLIN-POT CLAVULANATE 875-125 MG TABS Take one (1) tablet by mouth twice a day AMOXICILLIN-POT CLAVULANATE 875-125 MG TABS 286560 AMOXICILLIN-POT CLAVULANATE Inactive SMZ-TMP DS 800-160 MG TABS Take one (1) tablet by mouth twice a day SMZ-TMP DS 800-160 MG TABS SULFAMETHOXAZOLE-TRIMETHOPRIM Inactive LANSOPRAZOLE 30 MG CPDR Take 1 tablet by mouth daily LANSOPRAZOLE 30 MG CPDR 260943 LANSOPRAZOLE Inactive AZITHROMYCIN 250 MG TABS 2 po day 1 and 1 po days 2-5 AZITHROMYCIN 250 MG TABS 3769666 AZITHROMYCIN Inactive LEVOFLOXACIN 750 MG TABS Take 1 tablet by mouth daily LEVOFLOXACIN 750 MG TABS 902519 LEVOFLOXACIN Inactive VBCCQDDD-HNEQPWYRU-HK 3.5-80430-5 OTIC SUSP 2 drops qid JSOMPVKP-LAAQDUORO-YM 3.5-46856-7 OTIC SUSP 589468 WPMIQZSG-CSPTEJIKC-BD Inactive LEVOFLOXACIN 750 MG TABS Take 1 tablet by mouth daily LEVOFLOXACIN 750 MG TABS 323821 LEVOFLOXACIN Inactive OXYCODONE-ACETAMINOPHEN 10-325 MG TABS Take once every 8 hours by mouth. 2010 OXYCODONE-ACETAMINOPHEN 10-325 MG TABS 9130036 OXYCODONE- ACETAMINOPHEN Inactive Vital Signs Date Name [...] Measured Encounters Code Encounter Date Provider Facility CPT-80998 Level 3 Est. Patient 12:08:55 CDT Imtiaz Jennings [facility] CPT-55550 Level 3 Est. Patient 15:00:13 CDT Anurag Karol HENDRICKS [facility] CPT-86267 Level 3 New Patient 11:44:50 CDT Jessica Hazel [facility] CPT-76143 Level 3 Est. 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 Patient 10:14:18 CDT Anurag Roberson [facility] CPT-84507 Level 3 Est. Patient 11:02:44 CDT Anurag Roberson [facility] CPT-68801 Level 3 Est. Patient 11:00:59 CDT Anurag Alvarezner [facility] CPT-44762 Level 3 Est. 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
--- OUTSIDE RECORDS SUMMARY | 2018-05-22 14:32 | XMS REPORT | Clinical Summary ---
Author Author Admin, E Organization [facility] Address Unknown Phone Allergies, Adverse [...] TAB 1 tablet by mouth daily SPIRONOLACTONE 42961775616 Active Oliva Booth RN Active CIALIS 5 MG TABS Take 1 tablet by mouth daily TADALAFIL 77733489066 Active Anurag HENDRICKS Active METFORMIN HCL 1000 MG TABS 1 tablet by mouth twice daily METFORMIN HCL 97265927944 Active Imtiaz HENDRICKS Active LOVASTATIN 20 MG TABS take one tab po daily LOVASTATIN 70927172073 Active Macario Roy DO Active VESICARE 10 MG TABS take one tab po daily SOLIFENACIN SUCCINATE 73346075657 Active Macario Roy DO Active LEVOFLOXACIN 750 MG TABS Take 1 tablet by mouth daily LEVOFLOXACIN 33026609450 No Longer Active Devi Tomas Active LASIX 40 MG TAB 1/2 to 1 tablet by mouth daily as needed FUROSEMIDE 48459304541 Active Kathi Hershey Active LOTREL 5-20 MG CAPS 1 PO BID AMLODIPINE BESY-BENAZEPRIL HCL 62495454397 Active Imtiaz HENDRICKS Active TVULUOQX-STQSYLUDG-FD 3.5-06771-2 OTIC SUSP 2 drops qid BUHIILAA-RKQUUPNFI-AI 94357144039 No Longer Active Anurag HENDRICKS Active LEVOFLOXACIN 750 MG TABS Take 1 tablet by mouth daily LEVOFLOXACIN 49759278869 No Longer Active Anurag HENDRICKS Active AZITHROMYCIN 250 MG TABS 2 po day 1 and 1 po days 2-5 AZITHROMYCIN 14173114807 No Longer Active Jessi Fields RN Active KARELY-D ALLERGY & CONGESTION 60-120 MG NN95D-MXU Take 1 tablet by mouth daily FEXOFENADINE-PSEUDOEPHEDRINE 29914631371 Active Jaycee Flores MD PhD Active VENTOLIN HFA 108 (90 BASE) MCG/ACT AERS 2 puffs q 4-6 hrs as needed ALBUTEROL SULFATE 09746799825 Active Anurag HENDRICKS Active PREVACID 30 MG CPDR one p.o. daily LANSOPRAZOLE 77985200861 Active Macario Roy DO Active LANSOPRAZOLE 30 MG CPDR Take 1 tablet by mouth daily LANSOPRAZOLE 41924902889 No Longer Active Anurag HENDRICKS Active SMZ-TMP DS 800-160 MG TABS Take one (1) tablet by mouth twice a day SULFAMETHOXAZOLE-TRIMETHOPRIM 42145384936 No Longer Active Anurag HENDRICKS Active FLUTICASONE PROPIONATE 50 MCG/ACT SUSP 2 sprays each nostril qd FLUTICASONE PROPIONATE 29230016740 Active Kathi Hershey Active AMOXICILLIN-POT CLAVULANATE 875-125 MG TABS Take one (1) tablet by mouth twice a day AMOXICILLIN-POT CLAVULANATE 37393047037 No Longer Active Jessi Fields RN Active ENDOCET 10-325 MG TABS Take one (1) tablet by mouth three times a day OXYCODONE-ACETAMINOPHEN 18625177010 Active Imtiaz HENDRICKS Active OXYCODONE-ACETAMINOPHEN 10-325 MG TABS Take once every 8 hours by mouth. 2010 OXYCODONE-ACETAMINOPHEN 57298650646 No Longer Active Anurag HENDRICKS Active AMOXICILLIN-POT CLAVULANATE 875-125 MG TABS Take one (1) tablet by mouth twice a day AMOXICILLIN-POT CLAVULANATE 875-125 MG TABS 326875 AMOXICILLIN-POT CLAVULANATE Inactive SMZ-TMP DS 800-160 MG TABS Take one (1) tablet by mouth twice a day SMZ-TMP DS 800-160 MG TABS SULFAMETHOXAZOLE-TRIMETHOPRIM Inactive LANSOPRAZOLE 30 MG CPDR Take 1 tablet by mouth daily LANSOPRAZOLE 30 MG CPDR 874192 LANSOPRAZOLE Inactive AZITHROMYCIN 250 MG TABS 2 po day 1 and 1 po days 2-5 AZITHROMYCIN 250 MG TABS 3691660 AZITHROMYCIN Inactive LEVOFLOXACIN 750 MG TABS Take 1 tablet by mouth daily LEVOFLOXACIN 750 MG TABS 418475 LEVOFLOXACIN Inactive DJPBFPXL-EJFMYGUCQ-GS 3.5-68124-5 OTIC SUSP 2 drops qid AATCWTKR-RJIKQUGBE-UU 3.5-77951-5 OTIC SUSP 202535 IUPGOBXW-WLRBWPHYT-KX Inactive LEVOFLOXACIN 750 MG TABS Take 1 tablet by mouth daily LEVOFLOXACIN 750 MG TABS 963446 LEVOFLOXACIN Inactive OXYCODONE-ACETAMINOPHEN 10-325 MG TABS Take once every 8 hours by mouth. 2010 OXYCODONE-ACETAMINOPHEN 10-325 MG TABS 6543897 OXYCODONE- ACETAMINOPHEN Inactive Vital Signs Date Name [...] Measured Encounters Code Encounter Date Provider Facility CPT-20240 Level 3 Est. Patient 12:08:55 CDT Imtiaz Jennings [facility] CPT-01658 Level 3 Est. Patient 15:00:13 CDT Anurag Alvarezmunir HENDRICKS [facility] CPT-13775 Level 3 New Patient 11:44:50 CDT Jessica [facility] CPT-49797 Level 3 Est. Patient 14:44:47 INSURANCE CLAIMS SUPERVISOR Anurag Alvarezmunir HENDRICKS [facility] CPT-46025 Level 3 Est. Patient 10:14:18 CDT Anurag Roberson [facility] CPT-58496 Level 3 Est. Patient 11:02:44 CDT Anurag Roberson [facility] CPT-10141 Level 3 Est. Patient 11:00:59 CDT Anurag Roberson [facility] CPT-82145 Level 3 Est. Patient 16:06:00 INSURANCE CLAIMS SUPERVISOR Anurag Alvarezner [facility] CPT-14609 Level 3 Est. Patient 13:39:42 INSURANCE CLAIMS SUPERVISOR Anurag Alvarezner [facility] Procedures Code Procedure Name Date Entry Date Standard Description CPT-59436 Venipuncture Draw Fee 11:44:50 CDT CPT-OV Office Visit 12:07:47 CDT CPT-98589 Abx/Therapy Injection 10:14:18 CDT CPT-J3301 Kenalog 40 mg (Triamcinolone Acetonide) 10:14:18 CDT CPT-J1100 Decadron 4mg (Dexamethasone) 10:14:18 CDT CPT-65860 Venipuncture Draw Fee 11:02:44 CDT CPT-J0696 Rocephin 1000 mg (Ceftriaxone) 11:00:59 CDT CPT-03762 Abx/Therapy Injection 11:00:59 CDT CPT-Cryo Cryotherapy 16:06:00 INSURANCE CLAIMS SUPERVISOR CPT-52019 Abx/Therapy Injection 13:39:42 INSURANCE CLAIMS SUPERVISOR CPT-J3301 Kenalog 40 mg (Triamcinolone Acetonide) 13:39:42 INSURANCE CLAIMS SUPERVISOR CPT-J1100 Decadron 4mg (Dexamethasone) 13:39:42 INSURANCE CLAIMS SUPERVISOR
--- OUTSIDE RECORDS SUMMARY | 2018-05-22 14:33 | XMS REPORT | Continuity of Care Document ---
Author Author [facility] Organization [facility] Address Unknown Phone Unavailable Allergies Active Description Code Type Severity Reaction Onset Reported/Identified Relationship to Patient Clinical Status Yes cefTRIAXone Drug N/A N/A Yes cephalosporins 2 Drug N/A N/A Yes ceftriaxone 4849 Drug Allergy N /A N/A Confirmed or Verified Yes No Known Drug Allergies 61147397 Drug Allergy N/A N/A Confirmed but inactive Yes Rocephin 6748 Drug Allergy N/A N/A Yes ROCEPH ROCEPH Severe N/A 05/22/2018 Medications Medication Packaging Start Date Stop Date Route Dosage Sig PERCOCET ORAL 10/31/2013 11/30/2013 ORAL [id number] twice daily Problems Date Dx Coded Attending Type Code Diagnosis Diagnosed By 07/08/2014 D 719.42 JOINT PAIN-UP /ARM Procedures Code Description [place] [address] X-RAY EXAM OF ELBOW 07/08/2014 Results Test Result Range CBC - 11/07/13 00:00 HCT 45.2 % 41.9-52.0 HGB 15.6 G/DL 13.0-18.0 MCH 31.3 PG 27-31 MCHC 34.5 G/DL 33-37 MCV 90.8 FL 80-94 MPV 10.5 FL 7.3-10.4 PLT 322 10^3u 130-400 RBC 5.0 10^6u 4.7-6.1 RDW 13.3 % 11.5-15.5 WBC 7.8 10^3u 4.8-10.8 CMP - 11/07/13 00:00 ALB 3.1 G/DL 3.5-5 ALP 140 IU/L 50-136 ALT 41 IU/L 12-65 AST 23 IU/L 10-42 BCR 15.3 10-20 BUN 13 MG/DL 7-18 CA 10.4 MG/DL 8.4-10.2 CL 99 MEQ/L 98-107 CO2 30.6 MEQ/L 22-28 CREA 0.85 MG/DL 0.6-1.3 EGFR 92 eGFR >=60 GLU 129 MG/DL 70-105 K 3.4 MEQ/L 3.5-5.1 NA 138 MEQ/L 134-145 OSMSC 277.5 MOSML 280-300 TBIL 0.7 MG/DL 0.1-1.0 TP 8.1 G/DL 6.0-8.3 Albumin/Globulin Ratio 0.6 0-8 Anion Gap 8.4 8-16 CBC - 01/23/14 00:00 HCT 48.7 % 41.9-52.0 HGB 16.3 G/DL 13.0-18.0 MCH 32.0 PG 27-31 MCHC 33.5 G/DL 33-37 MCV 95.7 FL 80-94 MPV 10.8 FL 7.3-10.4 PLT 242 10^3u 130-400 RBC 5.1 10^6u 4.7-6.1 RDW 13.6 % 11.5-15.5 WBC 8.6 10^3u 4.8-10.8 HEPATIC PANEL - 01/23/14 00:00 ALB 3.9 G/DL 3.5-5 ALP 105 IU/L 50-136 ALT 18 IU/L 12-65 AST 15 IU/L 10-42 DBIL 0.2 MG/DL 0-0.3 IBILI 0.5 MG/DL 0.1-1.0 TBIL 0.7 MG/DL 0.1-1.0 TP 7.2 G/DL 6.0-8.3 Albumin/Globulin Ratio 1.2 0-8 HIV 1/2 SCREEN - 01/23/14 00:00 HIVSCRN NON-REACTIVE NON-REACTIVE HEPATITS B SURFACE AB QUANT - 01/23/14 00:00 HBSAB < 5 mIU/m HCV RNA QN PCR - 01/23/14 00:00 HCVPC1 <15 NOT DETECTED IU/mL <15 HCVPC2 <1.18 NOT DETECTED Log I <1.18 HCF PCR NOTE: SEE NOTE CBC - 05/26/14 00:00 HCT 46.1 % 41.9-52.0 HGB 15.3 G/DL 13.0-18.0 MCH 31.7 PG 27-31 MCHC 33.2 G/DL 33-37 MCV 95.4 FL 80-94 MPV 10.4 FL 7.3-10.4 PLT 254 10^3u 130-400 RBC 4.8 10^6u 4.7-6.1 RDW 13.7 % 11.5-15.5 WBC 7.6 10^3u 4.8-10.8 UA - 05/26/14 00:00 PH 5.0 4.5-8.0 SG 1.022 1.003-1.035 UABILI 1+ UABLD NEGATIVE UACOLOR YEL UAGLU NEGATIVE UAKET TRACE UALEUK NEGATIVE UANIT NEGATIVE UAURO 0.2 0-0.2 CLARITY CL PROTEIN NEGATIVE UA WBC R05 UA RBC R05 SQUAMOUS EPITHELIAL CELLS FEW CALCIUM OXALATE CRYSTALS 3+ CMP - 05/26/14 00:00 ALB 3.6 G/DL 3.5-5 ALP 93 IU/L 39-107 ALT 22 IU/L 12-65 AST 21 IU/L 10-42 BCR 15.5 10-20 BUN 11 MG/DL 7-18 CA 10.1 MG/DL 8.4-10.2 CL 104 MEQ/L 98-107 CO2 28.1 MEQ/L 22-28 CREA 0.71 MG/DL 0.6-1.3 EGFR 113 eGFR >=60 GLU 95 MG/DL 70-105 K 3.7 MEQ/L 3.5-5.1 NA 140 MEQ/L 134-145 OSMSC 278.6 MOSML 280-300 TBIL 0.7 MG/DL 0.1-1.0 TP 7.6 G/DL 6.0-8.3 Albumin/Globulin Ratio 0.9 0-8 Anion Gap 7.9 8-16 LIPID - 05/26/14 00:00 CHOHDL 3.4 1-3.5 CHOL 155 MG/DL 120-200 HDL 46 MG/DL 32-72 LDL 103 MG/DL 30-100 TRIG 69 MG/DL 35-160 VLDL 14 MG/DL 5-40 HA1C - 05/26/14 00:00 HA1C 5.2 % 4.5-6.2 Arterial blood gas measurement - 05/20/18 16:03 Blood pCO2 53 mm[Hg] 35-45 Blood pO2 65 mm[Hg] 79-93 Arterial blood bicarbonate measurement (moles/volume) 33 mmol/L 23-27 Arterial blood base excess by calculation 8.5 mmol/L -2.5 -2.5 Arterial blood oxygen saturation measurement 94 % 94-100 * Inhaled oxygen flow rate N/A NRG Arterial blood pH measurement with patient temperature correction 7.41 7.37-7.43 Arterial blood carbon dioxide, total measurement (moles/volume) 35.1 mmol/L 21.0-31.0 Body site RIGHT RADIAL NRG Assessment of wrist artery patency prior to arterial puncture POSITIVE NRG Setting of ventilation mode NO NRG Measurement of body temperature 97.3 NRG Complete blood count (CBC) with automated white blood cell (WBC) differential - 05/22/18 14:15 Blood leukocytes automated count (number/volume) 8.6 10*3/uL 4.3-11.0 Blood erythrocytes automated count (number/volume) 4.72 10*6/uL 4.35-5.85 Venous blood hemoglobin measurement (mass/volume) 15.0 g/dL 13.3-17.7 Blood hematocrit (volume fraction) 45 % 40-54 Automated erythrocyte mean corpuscular volume 96 [foz_us] 80-99 Automated erythrocyte mean corpuscular hemoglobin (mass per erythrocyte) 32 pg 25-34 Automated erythrocyte mean corpuscular hemoglobin concentration measurement ( mass/volume) 33 g/dL 32-36 Automated erythrocyte distribution width ratio 13.2 % 10.0-14.5 Automated blood platelet count (count/volume) 314 10*3/uL 130-400 Automated blood platelet mean volume measurement 9.6 [foz_us] 7.4-10.4 Automated blood neutrophils/100 leukocytes 76 % 42-75 Automated blood lymphocytes/100 leukocytes 13 % 12-44 Blood monocytes/100 leukocytes 9 % 0-12 Automated blood eosinophils/100 leukocytes 1 % 0-10 Automated blood basophils/100 leukocytes 0 % 0-10 Blood neutrophils automated count (number/volume) 6.6 10*3 1.8-7.8 Blood lymphocytes automated count (number/volume) 1.2 10*3 1.0-4.0 Blood monocytes automated count (number/volume) 0.8 10*3 0.0-1.0 Automated eosinophil count 0.1 10*3/uL 0.0-0.3 Automated blood basophil count (count/volume) 0.0 10*3/uL 0.0-0.1 Encounters ACCT No. Visit Date/Time Discharge Status Pt. Type Provider Facility Loc./Unit Complaint [id number] 05/15/2018 10:18:43 05/15/2018 23:59:59 DIS Outpatient MARV HERMAN [facility] [place] [facility] shortness of breathe, asthma, hx of left lung radiation [id number] 05/14/2018 15:40:20 05/14/2018 23:59:59 DIS Outpatient MARV HERMAN [facility] lab [id number] 05/14/2018 14:15:00 05/14/2018 23:59:59 DIS Outpatient MARV HERMAN [facility] [id number] 04/10/2018 08:53:18 04/10/2018 23:59:59 DIS Outpatient MARV HERMAN [facility] [id number] 04/02/2018 15:00:00 04/02/2018 23:59:59 CLS Outpatient MARV HERMAN [facility] [id number] 01/08/2018 15:00:00 01/08/2018 23:59:59 DIS Outpatient MARV HERMAN [facility] [id number] 10/03/2017 11:00:00 10/03/2017 23:59:59 DIS Outpatient Ivy Kahn [facility] [id number] 10/01/2017 19:52:00 10/01/2017 22:17:00 DIS Emergency JIGNA CUNNINGHAM [facility] [place] [facility] ED visit [id number] 09/07/2017 10:14:06 09/07/2017 23:59:59 DIS Outpatient MARV HERMAN [facility] [id number] 04/06/2017 09:46:25 04/06/2017 23:59:59 DIS Outpatient MARV HERMAN [facility] [id number] 04/06/2017 09:30:00 04/06/2017 23:59:59 DIS Outpatient MARV HERMAN [facility] [id number] 07/25/2016 16:00:00 07/25/2016 23:59:59 CLS Outpatient MARV HERMAN [facility] [id number] 07/13/2016 09:00:00 07/13/2016 23:59:59 CLS Outpatient [facility] [id number] 06/29/2016 15:00:28 06/29/2016 23:59:59 CLS Outpatient MARV HERMAN [facility] [id number] 06/29/2016 14:15:00 06/29/2016 23:59:59 CLS Outpatient MARV HERMAN [facility] [id number] 04/06/2017 09:58:59 Document Registration [id number] 05/23/2018 13:45:00 PEN Preadmit SHAWN SALAS DO [facility] RAD PLEURAL EFFUSION [id number] 05/22/2018 13:14:00 ACT Emergency ANGEL LUIS MASON, JENNIFER Retana [facility] ER FLUID ON LUNGS [id number] 05/20/2018 15:59:00 PEN Preadmit MICHOACANO ALVAREZ APRN [facility] CARD PLEURAL EFFUSION [id number] 05/20/2018 15:38:00 ACT Outpatient MICHOACANO ALVAREZ APRN [facility] RT [id number] 11/24/2014 12:09:00 11/24/2014 23:59:59 CLS Outpatient MARIA E FAROOQ [facility] RESP [id number] 11/12/2014 13:51:00 11/12/2014 13:51:00 DIS Outpatient MARIA E FAROOQ [facility] RAD [id number] 06/10/2014 11:24:00 06/10/2014 11:24:[address] DIS Outpatient MARV HERMAN [facility] [id number] 05/26/2014 08:49:00 05/26/2014 08:49:00 DIS Outpatient MARV HERMAN [facility] [id number] 04/20/2014 11:39:00 04/20/2014 11:39:00 DIS Outpatient DUY HERMANJaden Retana [facility] [id number] 01/23/2014 17:44:00 01/23/2014 18:35:00 DIS Emergency JAEANDRZEJ Shipley Mazin [facility] EMR [id number] 11/07/2013 09:06:00 11/07/2013 23:59:59 CLS Outpatient MARV HERMAN Mazin [facility] OBS [id number] 07/08/2014 11:05:00 Document Registration [id number] 05/10/2013 00:00:00 Document Registration [id number] 05/10/2013 00:00:00 Document Registration [id number] 05/10/2013 00:00:00 Document Registration [id number] 11/24/2014 12:10:00 ACT Document Registration [id number] 10/08/2014 09:24:37 10/08/2014 09:24:37 DIS Outpatient [id number] 06/25/2014 13:37:38 Document Registration [id number] 04/27/2015 10:58:00 ACT Unknown
--- OUTSIDE RECORDS SUMMARY | 2018-05-22 14:33 | XMS REPORT | Clinical Summary ---
[...] TAB 1 tablet by mouth daily SPIRONOLACTONE 71151493020 Active Oliva Booth RN Active CIALIS 5 MG TABS Take 1 tablet by mouth daily TADALAFIL 37635920109 Active Anurag HENDRICKS Active METFORMIN HCL 1000 MG TABS 1 tablet by mouth twice daily METFORMIN HCL 10643741659 Active Imtiaz HENDRICKS Active LOVASTATIN 20 MG TABS take one tab po daily LOVASTATIN 44587694978 Active Macario Roy DO Active VESICARE 10 MG TABS take one tab po daily SOLIFENACIN SUCCINATE 05784168474 Active Macario Roy DO Active LEVOFLOXACIN 750 MG TABS Take 1 tablet by mouth daily LEVOFLOXACIN 58235599058 No Longer Active Devi Tomas Active LASIX 40 MG TAB 1/2 to 1 tablet by mouth daily as needed FUROSEMIDE 48110658684 Active Kathi Highland Active LOTREL 5-20 MG CAPS 1 PO BID AMLODIPINE BESY-BENAZEPRIL HCL 41103086451 Active Imtiaz HENDRICKS Active WRSZZZZB-ULCSPPRTH-RK 3.5-69771-0 OTIC SUSP 2 drops qid DTMIYTWI-MAMHKKZGA-YL 65796046049 No Longer Active Anurag HENDRICKS Active LEVOFLOXACIN 750 MG TABS Take 1 tablet by mouth daily LEVOFLOXACIN 77312691996 No Longer Active Anurag HENDRICKS Active AZITHROMYCIN 250 MG TABS 2 po day 1 and 1 po days 2-5 AZITHROMYCIN 53082020030 No Longer Active Jessi Fields RN Active KARELY-D ALLERGY & CONGESTION 60-120 MG DE51O-HHJ Take 1 tablet by mouth daily FEXOFENADINE-PSEUDOEPHEDRINE 22882198837 Active Macario Roy DO Active VENTOLIN HFA 108 (90 BASE) MCG/ACT AERS 2 puffs q 4-6 hrs as needed ALBUTEROL SULFATE 26594542502 Active Anurag HENDRICKS Active PREVACID 30 MG CPDR one p.o. daily LANSOPRAZOLE 10054763611 Active Macario Roy DO Active LANSOPRAZOLE 30 MG CPDR Take 1 tablet by mouth daily LANSOPRAZOLE 84162672518 No Longer Active Anurag HENDRICKS Active SMZ-TMP DS 800-160 MG TABS Take one (1) tablet by mouth twice a day SULFAMETHOXAZOLE-TRIMETHOPRIM 57702112046 No Longer Active Anurag HENDRICKS Active FLUTICASONE PROPIONATE 50 MCG/ACT SUSP 2 sprays each nostril qd FLUTICASONE PROPIONATE 53627364874 Active Kathi Highland Active AMOXICILLIN-POT CLAVULANATE 875-125 MG TABS Take one (1) tablet by mouth twice a day AMOXICILLIN-POT CLAVULANATE 48879336616 No Longer Active Jessi Fields RN Active ENDOCET 10-325 MG TABS Take one (1) tablet by mouth three times a day OXYCODONE-ACETAMINOPHEN 44106865575 Active Imtiaz HENDRICKS Active OXYCODONE-ACETAMINOPHEN 10-325 MG TABS Take once every 8 hours by mouth. 2010 OXYCODONE-ACETAMINOPHEN 62793545539 No Longer Active Anurag HENDRICKS Active AMOXICILLIN-POT CLAVULANATE 875-125 MG TABS Take one (1) tablet by mouth twice a day AMOXICILLIN-POT CLAVULANATE 875-125 MG TABS 964366 AMOXICILLIN-POT CLAVULANATE Inactive SMZ-TMP DS 800-160 MG TABS Take one (1) tablet by mouth twice a day SMZ-TMP DS 800-160 MG TABS SULFAMETHOXAZOLE-TRIMETHOPRIM Inactive LANSOPRAZOLE 30 MG CPDR Take 1 tablet by mouth daily LANSOPRAZOLE 30 MG CPDR 858543 LANSOPRAZOLE Inactive AZITHROMYCIN 250 MG TABS 2 po day 1 and 1 po days 2-5 AZITHROMYCIN 250 MG TABS 2981995 AZITHROMYCIN Inactive LEVOFLOXACIN 750 MG TABS Take 1 tablet by mouth daily LEVOFLOXACIN 750 MG TABS 676336 LEVOFLOXACIN Inactive QHHVNFXW-UNKBRZSPV-GN 3.5-94892-3 OTIC SUSP 2 drops qid KVXUBCII-MSBFDCVKC-HF 3.5-37613-4 OTIC SUSP 055419 SCEZGKKQ-ZDTICCDVH-LI Inactive LEVOFLOXACIN 750 MG TABS Take 1 tablet by mouth daily LEVOFLOXACIN 750 MG TABS 497119 LEVOFLOXACIN Inactive OXYCODONE-ACETAMINOPHEN 10-325 MG TABS Take once every 8 hours by mouth. 2010 OXYCODONE-ACETAMINOPHEN 10-325 MG TABS 9643819 OXYCODONE- ACETAMINOPHEN Inactive Vital Signs Date Name [...] Measured Encounters Code Encounter Date Provider Facility CPT-81258 Level 3 Est. Patient 12:08:55 CDT Imtiaz Jennings [facility] CPT-99934 Level 3 Est. Patient 15:00:13 CDT Anurag Roberson [facility] CPT-76460 Level 3 New Patient 11:44:[address] [facility] CPT-60817 Level 3 Est. Patient 14:44:47 MAINTENANCE MECHANIC ELEVATORS Anurag Roberson RUTHIE [facility] CPT-39433 Level 3 Est. Patient 10:14:[address] [facility] CPT-83012 Level 3 Est. Patient 11:02:[address] [facility] CPT-63963 Level 3 Est. Patient 11:00:[address] [facility] CPT-18102 Level 3 Est. Patient 16:06:00 MAINTENANCE MECHANIC ELEVATORS Anurag Roberson [facility] CPT-37457 Level 3 Est. Patient 13:39:42 MAINTENANCE MECHANIC ELEVATORS Anurag Karlo [facility] Procedures Code Procedure Name Date Entry Date Standard Description CPT-10346 Venipuncture Draw Fee 11:44:50 CDT CPT-OV Office Visit 12:07:47 CDT CPT-47797 Abx/Therapy Injection 10:14:18 CDT CPT-J3301 Kenalog 40 mg (Triamcinolone Acetonide) 10:14:18 CDT CPT-J1100 Decadron 4mg (Dexamethasone) 10:14:18 CDT CPT-88854 Venipuncture Draw Fee 11:02:44 CDT CPT-J0696 Rocephin 1000 mg (Ceftriaxone) 11:00:59 CDT CPT-84977 Abx/Therapy Injection 11:00:59 CDT CPT-Cryo Cryotherapy 16:06:00 MAINTENANCE MECHANIC ELEVATORS CPT-11880 Abx/Therapy Injection 13:39:42 MAINTENANCE MECHANIC ELEVATORS CPT-J3301 Kenalog 40 mg (Triamcinolone Acetonide) 13:39:42 MAINTENANCE MECHANIC ELEVATORS CPT-J1100 Decadron 4mg (Dexamethasone) 13:39:42 MAINTENANCE MECHANIC ELEVATORS
--- NOTE | 2018-05-22 14:35 | Diagnostic Imaging Report ---
PATIENT HISTORY: Shortness of air, fluid about the lung. TECHNIQUE: Two views of the chest. COMPARISON: None. FINDINGS: There is a pwcjpjyq-at-fxgpj left pleural effusion, with associated airspace opacities. The right lung is clear. The cardiac silhouette is obscured but appears within normal limits of size. Sternotomy wire appears normal. There is aortic atherosclerosis. No acute osseous abnormality seen. There is no pneumothorax. IMPRESSION: Beujrfdf-tn-iqvhb left pleural effusion with associated airspace opacities. Dictated by: Dictated on workstation # [id number]
[2018-05-22 14:37] LABS: PROTHROMBIN TIME PATIENT 13.1 SEC (12.2-14.7)
[2018-05-22 14:46] LABS: ALANINE AMINOTRANSFERASE 24 U/L (0-55); ALBUMIN 4.6 GM/DL (3.2-4.5); ALKALINE PHOSPHATASE 92 U/L (40-136); BILIRUBIN,TOTAL 0.5 MG/DL (0.1-1.0); BUN/CREATININE RATIO 20; CARBON DIOXIDE 35 MMOL/L (21-32); CHLORIDE 97 MMOL/L (98-107); GFR ESTIMATED > 60; GLUCOSE 112 MG/DL (70-105); POTASSIUM 4.4 MMOL/L (3.6-5.0); SODIUM 138 MMOL/L (135-145); TOTAL PROTEIN 8.4 GM/DL (6.4-8.2)
--- NOTE | 2018-05-22 15:50 | History & Physical-Hospitalist ---
History of Present Illness HPI/Chief Complaint CC: Dyspnea due to large left pleural effusion HPI: This is a 63yoWM clinic patient of Rachel Montejo in [place], [place] who presents to the ER with dyspnea. Pt was found to have expanding left pleural effusion to the point that he could not maintain his O2 sats at home. Pt has a h/o lymphoma in 1984 and received extensive radiation treatment to the left pleural space and it is felt that he effusion is a complication for radiation treatment. Patient also has a h/o CABG at [facility] in 2003 and does not see a Senior Buyer Planner regularly. He also has h/o gastric bypass in 2012. Patient does smoke marijuana on a regular basis and is stating he is addicted to Percocet for the past 25 years. Source: patient, family, RN/MD Exam Limitations: no limitations Date Seen 05/22/18 Time Seen by a Provider: 15:30 Attending Physician PCP No,Local Physician Referring Physician Date of Admission Home Medications & Allergies Home Medications Reviewed patient Home Medication Reconciliation performed by pharmacy medication reconciliations coroner technician and/or nursing. Patients Allergies have been reviewed. Allergies Allergies Uncoded Allergies ROCEPH ( Allergy, Severe, 05/22/18) Pt states, "I about ." CYCLOSPORIN ( Allergy, Unknown, 05/22/18) Past Ttjvfky-Dsfcxt-Vxyryn Hx Past Med/Social Hx: Reviewed Nursing Past Med/Soc Hx, Reviewed and Corrections made Patient Social History Marrital Status: Employed/Student: employed ([employer]) Alcohol Use: Denies Use Recreational Drug Use: Yes Drug of Choice: marijuana Smoking Status: Former Smoker Type Used: Cigars 2nd Hand Smoke Exposure: No Recent Foreign Travel: No Contact w/other who traveled: No Recent Hopitalizations: No Recent Infectious Disease Expo: No Seasonal Allergies Seasonal Allergies: Yes Past Medical History Surgeries: Appendectomy, Cardiac Musculoskeletal: Arthritis, Chronic Back Pain Cancer: Lymphoma Did You Recieve Any Treatments: Yes What Type of Treatment Did You: Chemotherapy, Radiation History of Blood Disorders: No Adverse Reaction to Blood Porter: No Family History Reviewed Nursing Family Hx Hypertension Review of Systems Constitutional: see HPI, weakness EENTM: no symptoms reported Respiratory: dyspnea on exertion, short of breath Cardiovascular: no symptoms reported Gastrointestinal: no symptoms reported Genitourinary: no symptoms reported Musculoskeletal: no symptoms reported Skin: no symptoms reported Psychiatric/Neurological: No Symptoms Reported All Other Systems Reviewed Negative Unless Noted: Yes Physical Exam Physical Exam Vital Signs Vital Signs - First Documented 05/22/18 05/22/18 13:18 16:55 Temp 97.8 Pulse 81 Resp 16 B/P (MAP) 193/79 (117) Pulse Ox 95 O2 Delivery Room Air O2 Flow Rate 2.00 Capillary Refill : Less Than 3 Seconds Height, Weight, BMI Height: 6'2.00" Weight: 193lbs. oz. 87.822844go; BMI Method:Stated General Appearance: WD/WN, Chronically ill, Mild Distress Eyes: Bilateral Eye Normal Inspection, Bilateral Eye PERRL HEENT: PERRL/EOMI, Normal ENT Inspection, Pharynx Normal Neck: Full Range of Motion, Normal Inspection, Non Tender, Supple, Carotid Bruit Respiratory: Chest Non Tender, Lungs Clear (except diminshed left sided BS), Normal Breath Sounds, No Accessory Muscle Use, No Respiratory Distress Cardiovascular: Regular Rate, Rhythm, No Edema, No Gallop, No JVD, No Murmur, Normal Peripheral Pulses Gastrointestinal: Normal Bowel Sounds, No Organomegaly, No Pulsatile Mass, Non Tender, Soft Back: Normal Inspection, No CVA Tenderness, No Vertebral Tenderness Extremity: Normal Capillary Refill, Normal Inspection, Normal Range of Motion, Non Tender, No Calf Tenderness, No Pedal Edema Neurologic/Psychiatric: Alert, Oriented x3, No Motor/Sensory Deficits, Normal Mood/Affect Skin: Normal Color, Warm/Dry Lymphatic: No Adenopathy Results Results/Procedures Labs Laboratory Tests 05/22/18 14:15 Patient resulted labs reviewed. Assessment/Plan Admission Diagnosis Assessment: Left pleural effusion large Radiation to left chest wall in 1984 for lymphoma CAD previous CABG Percocet dependency Gastric bypass Plan: Home meds Thoracentesis Cytology Monitor closely Admission Status: Observation Diagnosis/Problems Diagnosis/Problems (1) Pleural effusion, left Status: Acute (2) Narcotic dependence Status: Chronic (3) H/O gastric bypass Status: Chronic (4) CAD (coronary artery disease) Status: Chronic Qualifiers: Coronary Disease-Associated Artery/Lesion type: [place] artery [place] vs. transplanted heart: [place] heart Associated angina: without angina Qualified Codes: I25.10 - Atherosclerotic heart disease of [place] coronary artery without angina pectoris (5) Hx of CABG Status: Chronic (6) Lymphoma in remission Status: Chronic TATO LANDERS DO May 22, 2018 15:50
--- OUTSIDE RECORDS SUMMARY | 2018-05-22 16:00 | XMS REPORT | Continuity of Care Document ---
Author Author [facility] Organization [facility] Address Unknown Phone Unavailable Allergies Active Description Code Type Severity Reaction Onset Reported/Identified Relationship to Patient Clinical Status Yes cefTRIAXone Drug N/A N/A Yes cephalosporins 2 Drug N/A N/A Yes ceftriaxone 4849 Drug Allergy N /A N/A Confirmed or Verified Yes No Known Drug Allergies [id number] Drug Allergy N/A N/A Confirmed but inactive Yes Rocephin 6748 Drug Allergy N/A N/A Yes CYCLOSPORIN CYCLOSPORIN Unknown N/A 05/22/2018 Yes ROCEPH ROCEPH Severe N/A 05/22/2018 Medications Medication Packaging Start Date Stop Date Route Dosage Sig PERCOCET ORAL 10/31/2013 11/30/2013 ORAL [id number] twice daily Problems Date Dx Coded Attending Type Code Diagnosis Diagnosed By 07/08/2014 D 719.42 JOINT PAIN-UP /ARM 05/22/2018 MICHOACANO ALVAREZ APRN Ot J90 PLEURAL EFFUSION, NOT ELSEWHERE CLASSIFI Procedures Code [place] [address] X-RAY EXAM OF ELBOW 07/08/2014 Results Test [...] blood basophil count (count/volume) 0.0 10*3/uL 0.0-0.1 PT panel in platelet poor plasma by coagulation assay - 05/22/18 14:15 Prothrombin time (PT) in platelet poor plasma by coagulation assay 13.1 s 12.2-14.7 INR in platelet poor plasma or blood by coagulation assay 1.0 0.8-1.4 Activated partial thromboplastin time (aPTT) in platelet poor plasma bycoagulation assay - 05/22/18 14:15 Activated partial thromboplastin time (aPTT) in platelet poor plasma bycoagulation assay 37 s 24-35 Comprehensive metabolic panel - 05/22/18 14:15 Serum or plasma sodium measurement (moles/volume) 138 mmol/L 135-145 Serum or plasma potassium measurement (moles/volume) 4.4 mmol/L 3.6-5.0 Serum or plasma chloride measurement (moles/volume) 97 mmol/L 98-107 Carbon dioxide 35 mmol/L 21-32 Serum or plasma anion gap determination (moles/volume) 6 mmol/L 5-14 Serum or plasma urea nitrogen measurement (mass/volume) 14 mg/dL 7-18 Serum or plasma creatinine measurement (mass/volume) 0.70 mg/dL 0.60-1.30 Serum or plasma urea nitrogen/creatinine mass ratio 20 NRG Serum or plasma creatinine measurement with calculation of estimated glomerular filtration rate > NRG Serum or plasma glucose measurement (mass/volume) 112 mg/dL 70-105 Serum or plasma calcium measurement (mass/volume) 11.0 mg/dL 8.5-10.1 Serum or plasma total bilirubin measurement (mass/volume) 0.5 mg/dL 0.1-1.0 Serum or plasma alkaline phosphatase measurement (enzymatic activity/volume) 92 U/L 40-136 Serum or plasma aspartate aminotransferase measurement (enzymatic activity/ volume) 26 U/L 5-34 Serum or plasma alanine aminotransferase measurement (enzymatic activity/volume ) 24 U/L 0-55 Serum or plasma protein measurement (mass/volume) 8.4 g/dL 6.4-8.2 Serum or plasma albumin measurement (mass/volume) 4.6 g/dL 3.2-4.5 Serum or plasma C reactive protein measurement (mass/volume) - 05/22/18 14:15 Serum or plasma C reactive protein measurement (mass/volume) 1.28 mg /dL 0.00-0.50 Serum or plasma lithium measurement (moles/volume) - 05/22/18 14:15 BNP level 74.2 pg/mL <100.0 Encounters ACCT No. Visit Date/Time Discharge Status Pt. Type Provider Facility Loc./Unit Complaint [id number] 05/15/2018 10:18:43 05/15/2018 23:59:59 DIS Outpatient MARV HERMAN [facility] shortness of breathe, asthma, hx of left lung radiation [id number] 05/14/2018 15:40:20 05/14/2018 23:59:59 DIS Outpatient MARV HERMAN [facility] lab [id number] 05/14/2018 14:15:00 05/14/2018 23:59:59 DIS Outpatient MARV HERMAN [facility] [place] [facility] [id number] 04/10/2018 08:53:18 04/10/2018 23:59:59 DIS Outpatient MARV HERMAN [facility] [id number] 04/02/2018 15:00:00 04/02/2018 23:59:59 CLS Outpatient MARV HERMAN [facility] [id number] 01/08/2018 15:00:00 01/08/2018 23:59:59 DIS Outpatient MARV HERMAN [facility] [place] [facility] [id number] 10/03/2017 11:00:00 10/03/2017 23:59:59 DIS Outpatient Ivy Kahn [facility] [place] [facility] [id number] 10/01/2017 19:52:00 10/01/2017 22:17:00 DIS Emergency JIGNA CUNNINGHAM [facility] ED ED visit [id number] 09/07/2017 10:14:06 09/07/2017 23:59:59 DIS Outpatient MARV HERMAN [facility] [id number] 04/06/2017 09:46:25 04/06/2017 23:59:59 DIS Outpatient MARV HERMAN [facility] [id number] 04/06/2017 09:30:00 04/06/2017 23:59:59 DIS Outpatient MARV HERMAN [facility] [id number] 07/25/2016 16:00:00 07/25/2016 23:59:59 CLS Outpatient MARV HERMAN [facility] [id number] 07/13/2016 09:00:00 07/13/2016 23:59:59 CLS Outpatient [facility] [id number] 06/29/2016 15:00:28 06/29/2016 23:59:59 CLS Outpatient MARV HERMAN [facility] lab [id number] 06/29/2016 14:15:00 06/29/2016 23:59:59 CLS Outpatient MARV HERMAN [facility] [id number] 04/06/2017 09:58:59 Document Registration [id number] 05/23/2018 13:45:00 PEN Preadmit SHAWN SALAS DO [facility] RAD PLEURAL EFFUSION [id number] 05/22/2018 15:15:00 ACT Inpatient TATO LANDERS DO [facility] 4TH LEFT PLUERAL EFFUSSION [id number] 05/20/2018 15:59:00 PEN Preadmit MICHOACANO ALVAREZ 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 [facility] CARD PLEURAL EFFUSION [id number] 05/20/2018 15:38:00 ACT Outpatient MICHOACANO ALVAREZ 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 [facility] RT [id number] 11/24/2014 12:09:00 11/24/2014 23:59:59 CLS Outpatient MARIA E FAROOQ [facility] RESP [id number] 11/12/2014 13:51:00 11/12/2014 13:51:00 DIS Outpatient MARIA E FAROOQ [facility] RAD [id number] 06/10/2014 11:24:00 06/10/2014 11:24:00 DIS Outpatient MARV HERMAN [facility] [id number] 05/26/2014 08:49:00 05/26/2014 08:49:00 DIS Outpatient MARV HERMAN [facility] [id number] 04/20/2014 11:39:00 04/20/2014 11:39:00 DIS Outpatient MARV HERMAN [facility] [id number] 01/23/2014 17:44:00 01/23/2014 18:35:00 DIS Emergency JAEANDRZEJ Shipley Mazin [facility] EMR [id number] 11/07/2013 09:06:00 11/07/2013 23:59:59 CLS Outpatient MARV HERMAN [facility] OBS [id number] 07/08/2014 11:05:00 Document Registration [id number] 05/10/2013 00:00:00 Document Registration [id number] 05/10/2013 00:00:00 Document Registration [id number] 05/10/2013 00:00:00 Document Registration [facility] 11/24/2014 12:10:00 ACT Document Registration [id number] 10/08/2014 09:24:37 10/08/2014 09:24:37 DIS Outpatient [id number] 06/25/2014 13:37:38 Document Registration [id number] 04/27/2015 10:58:00 ACT Unknown
[2018-05-22] MEDS ORDERED: LORA1TAB PO (16:06)
[2018-05-22] MEDS ORDERED: TAMS0.4C2 PO (16:06)
[2018-05-22] MEDS ORDERED: MIRA50TA PO (16:06)
[2018-05-22] MEDS ORDERED: IPRA3AMP31 NEB (16:06)
[2018-05-22] MEDS ORDERED: FURO40TA4 PO (16:06)
[2018-05-22] MEDS ORDERED: BUDE10.2 INH (16:06)
[2018-05-22] MEDS ORDERED: POTA10CA43 PO (16:06)
[2018-05-22] MEDS ORDERED: FEXO1TAB40 (16:06)
[2018-05-22] MEDS ORDERED: OXYC-465 PO (16:06)
[2018-05-22 17:00] VITALS: BP 182/84
[2018-05-22] MEDS ORDERED: oxyCODONE/APAP 10/325MG (PERCOCET 10) TABLET PO PRN ×3 (17:15→21:15)
[2018-05-22] MEDS ORDERED: CATHETER FLUSH 10 ML SYR IV PRN (17:15)
[2018-05-22 18:20] VITALS: BP 193/79
[2018-05-22] MEDS ORDERED: RT-ALBUTEROL/IPRATROPIUM 3 ML (DUONEB) VIAL INH PRN (18:30)
[2018-05-22] MEDS ORDERED: FEXO1TAB40 PO (18:41)
[2018-05-22] MEDS ORDERED: CYAN100088 PO (18:41)
[2018-05-22] MEDS ORDERED: METH500T5 PO (18:42)
[2018-05-22] MEDS ORDERED: PATIENT MAY USE OWN MEDS, ALL MC SCH (19:00)
[2018-05-22] MEDS ORDERED: LORazepam 1 MG (ATIVAN) TAB PO PRN (19:30)
[2018-05-22 20:00] VITALS: BP 183/87
[2018-05-22] MEDS ORDERED: NON-FORMULARY MEDICATION 1 EA EA (Budesonide/Formoterol Fumarate (Symbicort 160-4.5 Mcg In INH SCH (21:00)
[2018-05-22] MEDS ORDERED: TAMSULOSIN 0.4 MG (FLOMAX) CAP PO SCH (21:00)
[2018-05-22] MEDS ORDERED: NON-FORMULARY MEDICATION 1 EA EA (Potassium Chloride 20 MEQ) PO SCH (21:00)
[2018-05-22] MEDS ORDERED: DOCUSATE SODIUM 100 MG (COLACE) CAP PO PRN (21:15)
[2018-05-22] MEDS ORDERED: ALPRAZolam 0.25 MG (XANAX) TAB PO PRN (21:15)
[2018-05-22] MEDS ORDERED: CALCIUM CARBONATE 500 MG (TUMS) TAB.CHEW PO PRN (21:15)
[2018-05-22] MEDS ORDERED: ONDANSETRON 4 MG/2 ML (SDV) Z0FRAN IVP PRN (21:15)
[2018-05-22] MEDS ORDERED: cloNIDine 0.1 MG (CATAPRES) TAB PO PRN (21:15)
[2018-05-22] MEDS ORDERED: amLODIPine 5 MG (NORVASC) TAB PO ONE (21:15)
[2018-05-22] MEDS ORDERED: diphenhydrAMINE 25 MG TAB (BENADRYL) PO PRN (21:15)
[2018-05-22] MEDS ORDERED: ACETAMINOPHEN 500 MG TAB (TYLENOL) PO PRN (21:15)
[2018-05-22] MEDS: RT-ALBUTEROL/IPRATROPIUM 3 ML (DUONEB) VIAL INH SCH (21:33)
[2018-05-22] MEDS: RT-BUDESONIDE NEBS 0.5 MG/2ML (PULMICORT) AMP INH SCH (21:38)
[2018-05-22] MEDS: CATHETER FLUSH 10 ML SYR IV SCH (22:43)
[2018-05-23 00:06] VITALS: BP 148/84
[2018-05-23 04:01] VITALS: BP 143/83
[2018-05-23] MEDS: KCL 10 MEQ TAB (MICRO K) PO SCH ×2 (06:04→17:30)
[2018-05-23 06:06] LABS: BASOPHILS % (AUTO) 0 % (0-10); EOSINOPHILS # (AUTO) 0.2 10^3/uL (0.0-0.3); EOSINOPHILS % (AUTO) 2 % (0-10); HEMATOCRIT 42 % (40-54); LYMPHOCYTES # (AUTO) 1.1 X 10^3 (1.0-4.0); LYMPHOCYTES % (AUTO) 13 % (12-44); MEAN CORPUSCULAR HEMOGLOBIN 32 PG (25-34); MEAN CORPUSCULAR HGB CONC 33 G/DL (32-36); MEAN CORPUSCULAR VOLUME 96 FL (80-99); MEAN PLATELET VOLUME 9.6 FL (7.4-10.4); MONOCYTES # (AUTO) 0.8 X 10^3 (0.0-1.0); MONOCYTES % (AUTO) 10 % (0-12); NEUTROPHILS # (AUTO) 6.4 X 10^3 (1.8-7.8); NEUTROPHILS % (AUTO) 75 % (42-75); PLATELET COUNT 298 10^3/uL (130-400); RED BLOOD COUNT 4.39 10^6/uL (4.35-5.85); RED CELL DISTRIBUTION WIDTH 13.2 % (10.0-14.5); WHITE BLOOD COUNT 8.5 10^3/uL (4.3-11.0)
[2018-05-23] MEDS: CATHETER FLUSH 10 ML SYR IV SCH ×2 (06:06→15:31)
[2018-05-23 06:46] LABS: ALANINE AMINOTRANSFERASE 21 U/L (0-55); ALBUMIN 4.1 GM/DL (3.2-4.5); ALKALINE PHOSPHATASE 93 U/L (40-136); BILIRUBIN,TOTAL 0.5 MG/DL (0.1-1.0); BUN/CREATININE RATIO 17; CALCIUM 10.8 MG/DL (8.5-10.1); CARBON DIOXIDE 28 MMOL/L (21-32); CHLORIDE 99 MMOL/L (98-107); CREATININE SERUM 0.64 MG/DL (0.60-1.30); GFR ESTIMATED > 60; GLUCOSE 119 MG/DL (70-105); POTASSIUM 4.2 MMOL/L (3.6-5.0); SODIUM 138 MMOL/L (135-145); TOTAL PROTEIN 7.6 GM/DL (6.4-8.2)
--- NOTE | 2018-05-23 07:02 | Pulmonary Consultation ---
MINI STEPHENS MED STUDENT 05/23/18 0702: History of Present Illness History of Present Illness Date of Consultation 05/23/18 06:57 Time Seen by Provider: 06:57 History of Present Illness This is a 63 yo male clinic patient of Dr. Steven who is admitted for increasing SOB. This symptom gets worse when patient is lying down and this has prevented him from sleeping for two weeks. CXR suggests fluid in pleural space on left side. Allergies and Home Medications Allergies Uncoded Allergies: ROCEPH (Allergy, Severe, 05/22/18) Pt states, "I about ." CYCLOSPORIN (Allergy, Unknown, 05/22/18) Home Medications Albuterol Sulfate 18 Gm Hfa.aer.ad, 2 PUFF INH QID PRN for SHORTNESS OF BREATH, (Reported) Budesonide/Formoterol Fumarate 10.2 Gm Hfa.aer.ad, 2 PUFF INH BID, (Reported) Cyanocobalamin (Vitamin B-12) 1,000 Mcg Tablet, 1,000 MCG PO DAILY, (Reported) Fexofenadine/Pseudoephedrine 1 Each Tab.er.12h, 1 TAB PO DAILY, (Reported) Furosemide 40 Mg Tablet, 40 MG PO DAILY, (Reported) Ipratropium/Albuterol Sulfate 3 Ml Ampul.neb, 3 ML NEB QID PRN for SHORTNESS OF BREATH, (Reported) Lorazepam 1 Mg Tablet, 1 MG PO HS PRN for ANXIETY, (Reported) Methylcellulose 500 Mg Tablet, 500 MG PO DAILY, (Reported) Mirabegron 50 Mg Tab.er.24h, 50 MG PO HS, (Reported) Oxycodone HCl/Acetaminophen 1 Each Tablet, 1 TAB PO Q6H PRN for PAIN-MODERATE, ( Reported) Potassium Chloride 10 Meq Capsule.er, 20 MEQ PO BID, (Reported) TAKES 2 (10MEQ) CAPSULES Tamsulosin HCl 0.4 Mg Cap.er.24h, 0.4 MG PO HS, (Reported) [Bariatric Mtv] , 1 TAB PO DAILY, (Reported) Past Xtdvxir-Byzepk-Mwxzaf Hx Past Med/Social Hx: Reviewed Nursing Past Med/Soc Hx, Reviewed and Corrections made Patient Social History Alcohol Use: Denies Use Recreational Drug Use: Yes Drug of Choice: marijuana Smoking Status: Former Smoker Type Used: Cigars 2nd Hand Smoke Exposure: No Recent Foreign Travel: No Contact w/Someone Who Travel: No Recent Infectious Disease Expo: No Recent Hopitalizations: No Immunizations Up To Date Date of Influenza Vaccine: Mar 14, 2018 Seasonal Allergies Seasonal Allergies: Yes Past Medical History Surgeries: Yes (mini gastric bypass) Appendectomy, Cardiac Respiratory: Yes Pneumonia, Chronic Bronchitis Cardiac: Yes Neurological: No Genitourinary: No Musculoskeletal: No Arthritis, Chronic Back Pain Endocrine: No HEENT: No Cancer: Yes Lymphoma Did You Recieve Any Treatments: Yes What Type of Treatment Did You: Chemotherapy, Radiation Psychosocial: No Integumentary: No Blood Disorders: No Adverse Reaction/Blood Tranf: No Family Medical History Reviewed Nursing Family Hx Hypertension Review of Systems Time Seen by Provider: 07:09 Constitutional: No: Fever, Chills Eyes: No: Pain ENT: No: Ear pain Respiratory: Shortness of breath, SOB with excertion, Other (unable to lie flat ) Cardiovascular: Orthopnea Sepsis Event Evaluation Height, Weight, BMI Height: 6'2.00" Weight: 193lbs. 0.0oz. 87.376935ih; 24.8 BMI Method:Stated Exam Exam Vital Signs Date Time Temp Pulse Resp B/P (MAP) Pulse Ox O2 Delivery O2 Flow Rate FiO2 05/23/18 04:01 97.7 105 18 143/83 (103) 95 Room Air 05/23/18 01:00 97 05/23/18 00:06 97.6 100 18 148/84 (105) 99 Room Air 05/22/18 21:40 99 05/22/18 21:33 98 Nasal Cannula 2.00 05/22/18 20:00 96.9 87 18 183/87 (119) 97 Room Air 05/22/18 20:00 Nasal Cannula 2.00 05/22/18 19:00 90 05/22/18 18:34 Nasal Cannula 2.00 05/22/18 18:20 98 Nasal Cannula 2.00 05/22/18 18:20 100 98 05/22/18 17:48 91 05/22/18 17:00 96.9 105 20 182/84 (116) 96 Room Air 05/22/18 16:55 98.3 97 20 180/104 (129) 100 Nasal Cannula 2.00 05/22/18 13:55 95 Room Air 05/22/18 13:18 97.8 81 16 193/79 (117) 95 Room Air I & O 05/23/18 07:00 Intake Total 1540 ml Balance 1540 ml Height & Weight Height: 6'2.00" Weight: 193lbs. 0.0oz. 87.673028ia; 24.8 BMI Method:Stated General Appearance: WD/WN, Mild Distress HEENT: PERRL/EOMI, Normal ENT Inspection, Pharynx Normal Neck: Full Range of Motion, Normal Inspection, Non Tender, Supple Respiratory: Chest Non Tender, Lungs Clear (except diminshed left sided BS), Normal Breath Sounds, No Accessory Muscle Use, No Respiratory Distress Cardiovascular: Regular Rate, Rhythm, No Edema, No Gallop, No JVD, No Murmur, Normal Peripheral Pulses Capillary Refill: Less Than 3 Seconds Gastrointestinal: non tender, soft Extremity: Normal Capillary Refill, Normal Inspection, Normal Range of Motion, Non Tender, No Calf Tenderness, No Pedal Edema Neurologic/Psychiatric: Alert, Oriented x3, Normal Mood/Affect Skin: Normal Color, Warm/Dry Results Lab Laboratory Tests 05/22/18 14:15 05/23/18 05:50 Assessment/Plan Assessment/Plan Left Pleural Effusion -thoracentesis today SOB / dyspnea -increasing over the last two weeks -reassess after procedure Hx of chronic bronchitis Marijuana use -education Hx of lymphoma -1984 -received radiation to left chest CAD -hx of CABG in 2003 -not followed by a solar installation technician Gastric Bypass 2012 Narcotic dependence -reports he is addicted to percocet x25 years SHAWN STEVEN DO 05/23/18 1443: History of Present Illness History of Present Illness Time Seen by Provider: 07:00 Allergies and Home Medications Allergies Uncoded Allergies: ROCEPH (Allergy, Severe, 05/22/18) Pt states, "I about ." CYCLOSPORIN (Allergy, Unknown, 05/22/18) Home Medications Albuterol Sulfate 18 Gm Hfa.aer.ad, 2 PUFF INH QID PRN for SHORTNESS OF BREATH, (Reported) Budesonide/Formoterol Fumarate 10.2 Gm Hfa.aer.ad, 2 PUFF INH BID, (Reported) Cyanocobalamin (Vitamin B-12) 1,000 Mcg Tablet, 1,000 MCG PO DAILY, (Reported) Fexofenadine/Pseudoephedrine 1 Each Tab.er.12h, 1 TAB PO DAILY, (Reported) Furosemide 40 Mg Tablet, 40 MG PO DAILY, (Reported) Ipratropium/Albuterol Sulfate 3 Ml Ampul.neb, 3 ML NEB QID PRN for SHORTNESS OF BREATH, (Reported) Lorazepam 1 Mg Tablet, 1 MG PO HS PRN for ANXIETY, (Reported) Methylcellulose 500 Mg Tablet, 500 MG PO DAILY, (Reported) Mirabegron 50 Mg Tab.er.24h, 50 MG PO HS, (Reported) Oxycodone HCl/Acetaminophen 1 Each Tablet, 1 TAB PO Q6H PRN for PAIN-MODERATE, ( Reported) Potassium Chloride 10 Meq Capsule.er, 20 MEQ PO BID, (Reported) TAKES 2 (10MEQ) CAPSULES Tamsulosin HCl 0.4 Mg Cap.er.24h, 0.4 MG PO HS, (Reported) [Bariatric Mtv] , 1 TAB PO DAILY, (Reported) Assessment/Plan Assessment/Plan Left loculated pleural Effusion -No leukocytosis and no fever -Per US of chest pleural fluid is very loculated and thick. -Check CT of chest with contrast SOB / dyspnea -increasing over the last two weeks -reassess after procedure Hx of chronic bronchitis Marijuana use -education Hx of lymphoma -1984 -received radiation to left chest CAD -hx of CABG in 2003 -not followed by a solar installation technician Gastric Bypass 2012 Narcotic dependence -reports he is addicted to percocet x25 years -UPDATE 1400-- I ordered CT scan of chest with contrast however pt is refusing it because he wants to be transferred to [facility]. Initially he said he didn't think he would tolerate CT scan secondary to anxiety. I offered to give him Morphine and Ativan to help with SOB and anxiety. Pt just wants to transfer to [facility]. He knows and understands if transfer doesn't meet medical necessity his insurance may not cover transfer. Pt understands from a medical standpoint there is no reason for him to transfer. He has no fever, no leukocytosis. His Sp02 is 100% on 2 liter NC. ABG shows a compensated respiratory acidosis. MINI STEPHENS MED STUDENT May 23, 2018 07:02 SHAWN STEVEN DO May 23, 2018 14:43
[2018-05-23] MEDS ORDERED: LIDOCAINE 1% INJ 20 ML 20 ML VIAL ONE (07:38)
[2018-05-23 08:00] VITALS: BP 142/69
[2018-05-23] MEDS ORDERED: FEXO1TAB40 PO (08:51)
[2018-05-23] MEDS ORDERED: METH500T5 PO (08:51)
[2018-05-23] MEDS ORDERED: ALBU18HF2 INH (08:51)
[2018-05-23] MEDS ORDERED: [UNRECOGNIZED DRUG - OTHER] PO (08:51)
[2018-05-23] MEDS ORDERED: CYAN10006 PO (08:51)
[2018-05-23] MEDS ORDERED: CITRUCEL FIBER PO SCH (09:00)
[2018-05-23] MEDS ORDERED: CYANOCOBALAMIN 1,000 MCG (VITAMIN B-12) TABLET PO SCH (09:00)
[2018-05-23] MEDS ORDERED: NON-FORMULARY MEDICATION 1 EA EA (Mirabegron (Myrbetriq) 50 MG) PO SCH (09:00)
[2018-05-23] MEDS ORDERED: ALLEGRA D PO SCH (09:00)
[2018-05-23] MEDS ORDERED: MYRBETRIQ 50 MG TABLET PO SCH (09:00)
[2018-05-23] MEDS ORDERED: amLODIPine 5 MG (NORVASC) TAB PO SCH (09:00)
[2018-05-23] MEDS ORDERED: TAMSULOSIN 0.4 MG (FLOMAX) CAP PO SCH (09:00)
[2018-05-23] MEDS ORDERED: FUROSEMIDE 40 MG (LASIX) TAB PO SCH (09:00)
--- NOTE | 2018-05-23 09:20 | Diagnostic Imaging Report ---
INDICATION: Pleural effusion. FINDINGS: There is nonvascularized echodense and heterogeneous material in the left mid to lower pleural space. No detectable color Doppler blood flow. It is unclear if this is innumerable septations and honeycombing of a complex pleural collection or a process such as blood or infectious etiology. Neoplastic infiltration could not be excluded. Its echo density and complexity suggests it would likely be poorly compliant for drainage evacuation. Consider CT as its further characterization. IMPRESSION: The left pleural process is echodense and heterogeneous without appreciable vascularity. This is incompatible with simple free-flowing pleural fluid. Other etiology including blood, infectious debris, or even neoplastic infiltration could not be sonographically excluded. Consider further evaluation with a chest CT. Dictated by: Dictated on workstation # [id number]
[2018-05-23] MEDS: RT-BUDESONIDE NEBS 0.5 MG/2ML (PULMICORT) AMP INH SCH (09:41)
[2018-05-23] MEDS: RT-ALBUTEROL/IPRATROPIUM 3 ML (DUONEB) VIAL INH SCH ×2 (09:41→15:38)
[2018-05-23 09:53] LABS: ABG OXYGEN SATURATION 97 % (94-100); ABG PCO2 52 MMHG (35-45); ABG PO2 78 MMHG (79-93); ABG TCO2 33.6 MMOL/L (21.0-31.0)
[2018-05-23 09:59] LABS: ALLENS TEST YES-POS; INSPIRED O2 RM AIR; PATIENT TEMP 96.6; VENTILATOR NO
[2018-05-23] MEDS ORDERED: morphine INJ 10 MG/ML 1ML (SYR OR VIAL) IVP PRN (11:15)
[2018-05-23] MEDS ORDERED: MIDAZOLAM 2 MG/2 ML (VERSED) VIAL IM ONE (11:15)
--- NOTE | 2018-05-23 11:20 | Progress Note-Hospitalist ---
TATO LANDERS 05/23/18 1120: Subjective HPI/CC On Admission Date Seen by Provider: May 23, 2018 Time Seen by Provider: 10:00 CC: Dyspnea due to large left pleural effusion HPI: This is a 63yoWM clinic patient of Rachel Montejo in [place], [place] who presents to the ER with dyspnea. Pt was found to have expanding left pleural effusion to the point that he could not maintain his O2 sats at home. Pt has a h/o lymphoma in 1984 and received extensive radiation treatment to the left pleural space and it is felt that he effusion is a complication for radiation treatment. Patient also has a h/o CABG at [facility] in 2003 and does not see a Export Administrator regularly. He also has h/o gastric bypass in 2012. Patient does smoke marijuana on a regular basis and is stating he is addicted to Percocet for the past 25 years. Subjective/Events-last exam Patient was doing about the same when I saw him Refused CT scan of chest since Dr Steven and I both suspect mass in left lung Home oxygen will be needed Dr Steven contacted me and informed me that the patient was requesting transfer to higher level of care where [facility] was available and that was attempted to be completed by Dr Steven but patient left AMA Review of Systems Cardiovascular: Orthopnea Objective Exam Vital Signs Vital Signs Date Time Temp Pulse Resp B/P (MAP) Pulse Ox O2 Delivery O2 Flow Rate FiO2 05/23/18 15:40 96.7 97 18 153/87 (109) 96 Room Air 05/23/18 09:42 2.00 Capillary Refill : Less Than 3 Seconds General Appearance: WD/WN, Anxious, Chronically ill, Moderate Distress Respiratory: Chest Non Tender, Crackles, Decreased Breath Sounds Cardiovascular: Regular Rate, Rhythm, No Edema, No Gallop, No JVD, No Murmur, Normal Peripheral Pulses Neurologic/Psychiatric: Alert, Oriented x3, No Motor/Sensory Deficits, Normal Mood/Affect Results/Procedures Lab Laboratory Tests 05/23/18 05:50 Patient resulted labs reviewed. Assessment/Plan Assessment and Plan Assess & Plan/Chief Complaint Assessment: Left pleural effusion Left radiation pneumonitis Chronic pain Hypoxia Sleep deprivation Plan: Patient left AMA. Diagnosis/Problems Diagnosis/Problems (1) Pleural effusion, left Status: Acute (2) Narcotic dependence Status: Chronic (3) H/O gastric bypass Status: Chronic (4) CAD (coronary artery disease) Status: Chronic Qualifiers: Coronary Disease-Associated Artery/Lesion type: [place] artery [place] vs. transplanted heart: [place] heart Associated angina: without angina Qualified Codes: I25.10 - Atherosclerotic heart disease of [place] coronary artery without angina pectoris (5) Hx of CABG Status: Chronic (6) Lymphoma in remission Status: Chronic Clinical Quality Measures DVT/VTE Risk/Contraindication: Risk Factor Score Per Nursin RFS Level Per Nursing on Admit: 2=Moderate YESI GONZALES MED STUDENT 05/23/18 1155: Subjective Subjective/Events-last exam Patient states that he is feeling well but is SOB Patient complains of inability to sleep He states that lack of sleep is beginning to affect his mood He is also complaining of constipation Objective Exam General Appearance: No Apparent Distress, WD/WN Respiratory: Chest Non Tender, Crackles, Decreased Breath Sounds Cardiovascular: Regular Rate, Rhythm, No Edema, No Gallop, No JVD, No Murmur Gastrointestinal: Normal Bowel Sounds Neurologic/Psychiatric: Alert, Oriented x3, No Motor/Sensory Deficits, Normal Mood/Affect Skin: Normal Color, Warm/Dry Assessment/Plan Assessment and Plan Assess & Plan/Chief Complaint Assessment: 1) Left pleural effusion 2) Dyspnea 3) Constipation 4) Sleep deprivation Plan: 1) Thoracentesis 2) Home O2 evaluation 3) Cardiology consult TATO LANDERS DO May 23, 2018 11:20 YESI GONZALES MED STUDENT May 23, 2018 11:55
[2018-05-23 12:00] VITALS: BP 139/81
[2018-05-23] MEDS ORDERED: IOHEXOL 350 MG/ML 150 ML (OMNIPAQUE 350) VIAL IV ONE (12:30)
[2018-05-23] MEDS ORDERED: RECEIVED CONTRAST (Hold Metformin) IV SCH (12:30)
[2018-05-23] MEDS ORDERED: NS 100 ML (IVPB) BAG IV ONE (12:30)
[2018-05-23 15:40] VITALS: BP 153/87
[2018-05-23] MEDS ORDERED: MIRABEGRON PO SCH (21:00)
== END 2018-05-23 17:55 | disposition left against medical advice (07) ==
LOC: EDUNIT# 13:14 → ER 13:14 → UNDOADMOB 15:15 → 4TH 15:15
PROVIDERS: ADMIT Internal Medicine; ATTEND Internal Medicine
DX: J90 Pleural effusion, not elsewhere classified (principal); I25.10 Atherosclerotic heart disease of native coronary artery without angina pectoris; C85.90 Non-Hodgkin lymphoma, unspecified, unspecified site; F11.20 Opioid dependence, uncomplicated; K59.00 Constipation, unspecified; Z92.21 Personal history of antineoplastic chemotherapy; Z92.3 Personal history of irradiation; Z87.891 Personal history of nicotine dependence; Z95.1 Presence of aortocoronary bypass graft; Z98.84 Bariatric surgery status; Z79.899 Other long term (current) drug therapy; Z72.820 Sleep deprivation; Z53.21 Procedure and treatment not carried out due to patient leaving prior to being seen by health care provider
CPT/HCPCS: 36415; 36600; 71046; 76604; 80053; 82805; 83880; 85025; 85610; 85730; 86141; 93306; 94640; 94760